=== PATIENT | male | born 1970 | race African-American/Black ===

== ENCOUNTER 2019-11-17 14:37 | Inpatient (IN) | payer OTHER, SELFPAY ==
[2019-11-17] VITALS (35 sets, daily range): BP systolic 119–151; BP diastolic 65–107; PULSE 83–168; RESP 13–25; TEMP 37–37.4; O2SAT 79–100; BMI 17.5
--- NOTE | ~2019-11-17 | XR_ITS ---
EXAMINATION: XR chest 1V portable EXAM DATE: 11/17/2019 15:17 INDICATION: Shortness of breath, fever. TECHNIQUE: Portable AP frontal chest x-ray was obtained. There is no prior study for comparison. FINDINGS: The lungs are clear. There are no pleural effusions. The cardiomediastinal silhouette is within normal limits. There is no pneumothorax suspected. Several old right mid rib fractures. IMPRESSION: No acute cardiopulmonary findings. Reviewed, dictated and finalized at location A.
--- NOTE | ~2019-11-17 | XR_ITS ---
EXAMINATION: XR knee RT 2V EXAM DATE: 11/19/2019 18:19 INDICATION: Initial encounter following injury, with pain of the right knee. TECHNIQUE: Frontal and lateral projections of the right knee. There is no prior study for compariso n. FINDINGS: There are no acute right knee fractures or dislocations identified. There is no subcutaneo us gas. The soft tissue is unremarkable. There are no radiopaque foreign bodies. No joint effusio n. IMPRESSION: 1. Right knee exam without acute osseous findings. Reviewed, dictated and finalized at location A.
--- NOTE | ~2019-11-17 | XR_ITS ---
EXAMINATION: XR small bowel follow through DATE: 11/19/2019 14:02 INDICATION: Anemia. Occult blood in stool. TECHNIQUE: Oral contrast was administered, and a time course of radiographs of the abdomen was obtain ed. Fluoroscopy of the small bowel was performed. Fluoroscopy exposure time was 0.3 minutes. The tota l number of images was 11. COMPARISON: CT abdomen and pelvis 11/17/2019 FINDINGS: The small bowel is normal in caliber. No mass or stricture. The terminal ileum is normal. Transit liane e from the stomach to proximal colon was approximately 1 hour and 30 minutes. IMPRESSION: 1. Normal small bowel series. Reviewed, dictated and finalized at location A.
--- NOTE | ~2019-11-17 | CT_ITS ---
EXAMINATION: CTA chest PE protocol DATE: 11/22/2019 15:50 INDICATION: Tachypnea. Tachycardia. TECHNIQUE: Computed tomography (CT) pulmonary angiogram of the chest was performed with 100 mL Omnipa que-350 intravenous contrast. Additional 3D reconstructions utilizing coronal maximum intensity proje ction (MIP) were performed. Automated exposure control and iterative reconstruction technique were em ployed. The dose-length product was 197.74 mGy-cm. COMPARISON: None FINDINGS: Excellent contrast opacification of the pulmonary arteries. There is mild streak artifact from dense contrast in the superior vena cava and right atrium. Significant respiratory motion artifact yielding diagnostic quality study which demonstrates no pulmonary embolism. Mild emphysema. Diffuse mild bron chial wall thickening consistent with bronchitis. Mild subpleural atelectasis/scarring in the right l ower lobe. No pneumonia, pulmonary edema or pleural effusion. Heart size is normal. No pericardial ef fusion. Thoracic aorta is normal in caliber with no dissection. No pathologically enlarged thoracic l ymphadenopathy. Bilateral gynecomastia. Multiple small calcified gallstones in the partially decompre ssed gallbladder. No evident wall thickening or pericholecystic from 3 change to suggest acute cholec ystitis. Multiple bilateral rib fractures in varying degrees of healing. IMPRESSION: 1. No pulmonary embolism. 2. Mild emphysema with bronchial wall thickening consistent with bronchitis. Reviewed, dictated and finalized at location A.
--- NOTE | ~2019-11-17 | MR_ITS ---
EXAMINATION: MR abdomen wo/w con INDICATION: Anemia and weight loss TECHNIQUE: Coronal SSFSE ARC, WATER:coronal LAVA-FLEX, Coronal 2D FIESTA FatSat, Axial SSFSE BH ARC, Axial 3D DualEcho BH, Axial SSFSE-IR, Axial DWI b=500, Axial 2D FIESTA FatSat, pre and dynamic postco ntrast Axial LAVA ARC, postcontrast Coronal In and Opposed phase LAVA FLEX COMPARISON: CT, 11/17/2019 CONTRAST: Multihance, 13 cc FINDINGS: The liver, spleen, pancreas, and adrenal glands are normal. Stones are present in the nondi stended gallbladder. The kidneys are unremarkable. Unusual kidney enhancement pattern described on th e comparison CT was likely related to phase of contrast. No pathologically enlarged abdominal lymph n odes are identified. There are no dilated loops of bowel. IMPRESSION: 1. Cholelithiasis without evidence of cholecystitis. 2. No MR correlate for anemia or weight loss. Reviewed, dictated and finalized at location A.
--- NOTE | ~2019-11-17 | CT_ITS ---
EXAMINATION: CT abdomen pelvis w con EXAM DATE: 11/17/2019 17:28 INDICATION: Left lower quadrant pain, cough, anemia. TECHNIQUE: Spiral CT of the abdomen and pelvis was performed following intravenous injection of 100 m L Omnipaque 350. Axial, coronal and sagittal images were reviewed. The dose-length product (DLP) fo r this examination was 249.71 mGy-cm. The exposure was tailored according to patient size (auto mA e xposure control), and iterative reconstruction (ASIR) was used as additional dose reduction technique . There is no prior study for comparison. FINDINGS: There is skin thickening over the sacrum, could also have induration or decubitus ulceratio n. There is fat stranding, inflammation in the presacral space as well. No sacral erosion. Some borde rline-sized inguinal lymph nodes probably reactive. No pelvic or retroperitoneal lymphadenopathy. The liver, spleen, adrenal glands and pancreas are unremarkable. There are gallstones within an othe rwise unremarkable gallbladder. No evidence of obstructive biliary disease. Portal and splenic vein s are patent. Kidneys enhance symmetrically with an unusual pattern, possible nephropathy. There is no hydronephrosis. The prostate is unremarkable. The bladder is unremarkable. There is mild scat tered arteriosclerotic disease. The appendix is normal. The stomach and small bowel are unremarkable. There is expected amount of c olonic stool. No free intraperitoneal gas. The heart is normal in size. There are no pericardial or pleural effusions. The lung bases are unremarkable. There are bilateral rib fractures of varying ages, with 2 of them in the left lower axillary line whi ch appear relatively acute, no callus formation at this point. Several right rib fractures appear sub acute to chronic. IMPRESSION: 1. Skin thickening overlying sacrum extending to the anus, possible cellulitis or ulceration. Clinic al correlation. Also some inflammation extending to the presacral space but no evidence of sacral ost eomyelitis. 2. Rib fractures of varying ages including 2 left lower ribs in mid axillary line which appear relat ively acute. 3. Unusual kidney enhancement pattern, could be nephropathy. 4. Borderline sized inguinal lymph nodes, most likely reactive. 5. Cholelithiasis. 6. No acute intra-abdominal findings. Reviewed, dictated and finalized at location A. IMPRESSION: 1. Skin thickening overlying sacrum extending to the anus, possible cellulitis or ulceration. Clinical correlation. Also some inflammation extending to the p resacral space but no evidence of sacral osteomyelitis. 2. Rib fractures of varying ages including 2 left lower ribs in mid axillary l ine which appear relatively acute. 3. Unusual kidney enhancement pattern, could be nephropathy. 4. Borderline sized inguinal lymph nodes, most likely reactive. 5. Cholelithiasis. 6. No acute intra-abdominal findings.
--- NOTE | ~2019-11-17 | MR_ITS ---
EXAMINATION: MR pelvis wo/w con INDICATION: Anemia and weight loss TECHNIQUE: Coronal SSFSE ARC, WATER:coronal LAVA-FLEX, Coronal 2D FIESTA FatSat, Axial SSFSE BH ARC, Axial 3D DualEcho BH, Axial SSFSE-IR, Axial DWI b=500, Axial 2D FIESTA FatSat, postcontrast Axial LAV A ARC, postcontrast Coronal In and Opposed phase LAVA FLEX COMPARISON: CT, 11/17/2019 CONTRAST: Multihance, 13 cc FINDINGS: There are several small perirectal abscesses best appreciated on the postcontrast Axial LAV A ARC sequence, images 69 through 90. One to the right of midline on image 75 measures 2.8 x 0.7 cm. One in the midline on image 74 measures 1.3 x 1.0 cm. One to the left of midline on image 73 measures 1.2 x 1.1 cm. There is presacral edema. Mild bilateral inguinal lymphadenopathy is noted. There are no dilated loops of bowel. The visualized osseous structures are unremarkable. Soft tissue density in the perineum and to the right of midline likely reflects changes from prior abscess drainage. IMPRESSION: 1. Multiple small perirectal abscesses as described above. 2. Mild inguinal lymphadenopathy, likely reactive. Reviewed, dictated and finalized at location A.
--- NOTE | 2019-11-17 14:53 | ECG_ITS ---
Measurements Intervals [place] Rate: 85 P: 38 MO: 148 QRS: 59 QRSD: 94 T: 56 QT: 366 QTc: 436 Interpretive Statements SINUS RHYTHM VOLTAGE CRITERIA FOR LVH BASELINE ARTIFACT- I, III, AVL, V1-V2, V5-V6 BORDERLINE ECG Electronically Signed On 11-17-2019 15:38:08 CDT by Marcelino Mccurdy D.O.
[2019-11-17 15:23] LABS: Basophils Absolute Auto 0.1 K/mm3 (0.0-0.1); Basophils Percent Auto 0.9 % (0.2-1.2); Eosinophils Absolute Auto 0.2 K/mm3 (0-0.3); Eosinophils Percent Auto 3.5 % (0-4.4); Immature Granulocyte Absolute 0.03 K/mm3 (0.00-0.031); Immature Granulocyte Percent A 0.5 % (0-0.5); Lymphocytes Absolute Auto 1.53 K/mm3 (0.9-3.2); Lymphocytes Percent Auto 23.5 % (18.3-44.2); Mean Corpuscular HGB Conc 27.5 g/dl (32-36); Mean Corpuscular Hemoglobin 23.1 pg (26-34); Mean Corpuscular Volume 84.3 fl (80-100); Mean Platelet Volume 8.8 fl (7.4-10.4); Monocytes Absolute Auto 0.6 K/mm3 (0.1-0.6); Monocytes Percent Auto 9.8 % (2.6-8.5); Neutrophils Percent Auto 61.8 % (45.5-73.1); Platelet Count Result 300 k/mm3 (150-375); Red Blood Count 2.42 M/mm3 (4.6-6.20); Red Cell Distribution Width 22.1 % (11.5-14.5); White Blood Count 6.5 K/mm3 (4.5-10.0)
--- NOTE | 2019-11-17 15:39 | PC.NURSE ---
Pt aware we need a urine sample and awaiting results. Pt has call light in reach
[2019-11-17 15:40] LABS: Alanine Aminotransferase 12 U/L (4-50); Albumin Level 3.8 g/dL (3.5-5.1); Alkaline Phosphatase 121 U/L (38-126); Aspartate Amino Transferase 33 U/L (17-59); Bilirubin,Total < 0.1 mg/dL (0.2-1.3); Blood Urea Nitrogen 4 mg/dL (9-20); Carbon Dioxide 17 mmol/L (22-30); Chloride 111 mmol/L (98-107); Estimated CRCL calculation 87 ml/min; Estimated Glomerular Filt Rate > 60; Glucose 96 mg/dL (75-110); Potassium 3.2 mmol/L (3.4-5.0); Sodium 139 mmol/L (137-145)
[2019-11-17 15:41] LABS: Hematocrit 20.4 % (42.0-52.0); Hemoglobin 5.6 g/dL (14.0-18.0)
[2019-11-17 15:43] LABS: Hyperchromasia 3+ (NORMAL); Hypochromasia 2+ (NORMAL); Platelet Estimate Adequate (Adequate)
--- NOTE | 2019-11-17 16:23 | ED.WEAKNESS ---
HPI - Weakness General Chief complaint: Weakness Stated complaint: Weakness, fever Time Seen by Provider: 11/17/19 15:42 History of Present Illness HPI Narrative: Patient presents with generalized weakness. He denies vomiting blood, rectal bleeding, sickle cell, or any known disease. He has a slight cough but denies other illness. No fever chills or sweats. He has some left flank pain, over the last couple days, no diarrhea or constipation. He is very thin but denies HIV. Denies risk factors for HIV. He did have a scope many years ago, and said that he was not told he had any disease. Complaint: generalized weakness Onset (ago): day(s) Duration: constant Location: generalized Related Data Allergies Allergy/AdvReac Type Severity Reaction Status Date / Time metronidazole Allergy Mild BLISTERS Verified 11/17/19 14:49 atenolol Allergy Unknown angioedema Verified 11/17/19 14:49 chlorthalidone [Tenoretic] Allergy Unknown angioedema Verified 11/17/19 14:49 lisinopril Allergy Unknown Swelling Verified 11/17/19 14:49 of Lip/Tongue/Throat Sulfa (Sulfonamide Allergy Unknown Skin Verified 11/17/19 14:49 Antibiotics) Reaction NKFA Allergy Mild Other Uncoded 11/17/19 14:49 Review of Systems Review of Systems: Narrative: CONSTITUTIONAL: Denies fever, chills, or sweats. EYES: Denies visual changes, redness, or discharge. ENT: Denies rhinorrhea, congestion, sore throat, or otalgia. CARDIOVASCULAR: Denies chest pain, palpitations, or edema. RESPIRATORY: Denies cough or dyspnea. GASTROINTESTINAL: Denies abdominal pain, nausea, vomiting, or diarrhea. GENITOURINARY: Denies dysuria or hematuria. SKIN: Denies rash or itching. MUSCULOSKELETAL: Denies back pain, joint pain, or myalgia. NEUROLOGIC: Denies headache, numbness, or weakness. PSYCHIATRIC: Denies anxiety or depression. All systems reviewed & are unremarkable except as noted in HPI and below PMFSH Surgical History Surgical History (Updated 11/17/19 @ 16:25 by Gem Chao MD) History of ankle surgery Social History Social History (Updated 11/17/19 @ 16:25 by Gem Chao MD) Smoking status: Never smoker Alcohol intake: current Substance use: never Gender identity (if verbalized by the patient): Male Exam Narrative: Exam Narrative: GENERAL: Tall thin cachectic and pale. HEAD: Normocephalic, atraumatic. EYES: PERRLA and EOMI. ENT: Nares clear, no rhinorrhea or epistaxis. Mucous membranes moist. NECK: Supple. CHEST: Clear to auscultation. No respiratory distress. HEART: Regular rate and rhythm. No murmur heard. Normal peripheral pulses. ABDOMEN: Soft, nontender, nondistended, normal active bowel sounds. EXTREMITIES: Normal range of motion. No edema. SKIN: Warm, dry, his skin is very dry and has hypo-and hyperpigmentation scattered throughout. NEURO: No focal deficits. Alert and oriented x3. PSYCH: Flat affect, and few words. Course Reevaluation(s) Reevaluation #1: Checked in with the patient to tell him the results of his CAT scan. He had said earlier that he had had surgeries on his buttock but did not know what to call it. Radiologist reports swelling in the tissues around the anus and the sacral area. The patient said that there is no drainage from this area. I did the rectal exam and it was guaiac positive, but the tissues surrounding the anus on the buttock are thickened and scarred and very unusual. His blood has not yet come down, but we will admit for the transfusion. Date: 11/17/19 Time: 18:29 Consultations Consultation #1: Called the hospitalist for admission. She will he accepts for Dr. Jones as long as we can get a GI kristopher on the case. We will call Dr. Garzon even though he is not director operations broadcast to see if he will take it. Date: 11/17/19 Time: 18:36 Consultation #2: Call Dr. Ruiz, and he accepts the consult. He requested if we can figure out where the patient's previous scope was that history would be important. Date: 11/17/19 Time: 18
[2019-11-17 17:39] LABS: Lactic Acid 1.8 mmol/L (0.7-2.1)
--- NOTE | 2019-11-17 17:50 | PC.NURSE ---
Pt stood up to urinate and his HR went to 168. MD Chao aware. Pt HR now 99 after laying down
[2019-11-17 18:11] LABS: HIV 1/2 Ab P24 Ag Result Negative (Negative)
[2019-11-17 18:26] LABS: Add Urine Microscopic? YES; Appearance Urine Clear (Clear); Bilirubin Urine Negative (Negative); Blood Urine Negative (Negative); Color Urine Straw (Yellow); Glucose Urine UA Negative (Negative); Ketones Urine Negative (Negative); Leukocyte Esterase Ur Negative LEU/UL (Negative); Nitrate Urine Negative (Negative); Protein Urine 1+ mg/dL (Negative); RBC Urine 0-2 /hpf (0-2); Specific Grav Ur 1.025 (1.001-1.035); Urobilinogen Urine Negative mg/dL (<2.0); WBC Urine 0-3 /hpf
[2019-11-17] MEDS: SODIUM CHLORIDE 0.9% IV 250 ML 30 ML IV CONT (20:31)
[2019-11-17] MEDS: TUBING, BLOOD SET 1 EACH XX (20:32)
--- NOTE | 2019-11-17 22:05 | ADMGEN ---
This patient, Rafy Davis, was admitted to [facility] Surg Room 328-01. Patient/family oriented to hospital policies and general routines including ID bracelet, bed and alarms, visiting hours, pain management, procedures, bathroom and other care routines, personal items, smoking policy, room service/diet, and visiting hours. Valuables list has been completed. Information on how to activate the Rapid Response Team has been discussed. Patient/Family are encouraged to report perceived risks to care and to ask questions if they do not understand what they are told or what they should do.
[2019-11-18] VITALS (17 sets, daily range): BP systolic 106–148; BP diastolic 66–93; PULSE 67–141; RESP 16–20; TEMP 36.3–37.8; O2SAT 92–100; BMI 17.5
--- NOTE | 2019-11-18 02:23 | PM.IMHP ---
H&P: HPI History of Present Illness Chief complaint: Anemia, GI Bleed Narrative: This is a 49 year old male who is known to previously have HTN but currently is not taking any medications and presented to the hospital with complaints of ongoing generalized weakness, shortness of breath, nonproductive coughing, dizziness, and left sided costal discomfort. The patient reports that he fell about 3 weeks ago and landed on his left side when he was severely dizzy although he denies passing out at that time. He has been experiencing night sweats and has had significant sudden recent weight loss. He isn't sure exactly how much weight he has lost recently. The patient denies any fever or chills. He also denied having HIV but was tested for HIV in the ER tonight. Routine labs were obtained which demonstrated an H/H of 5.6/20.4. Rectal exam was performed in the ER which was guiaic postive. The patient denies any bright red rectal beeding or dark black stools. He also denies any recent bloody emesis. He does not have any previous history of GI Bleeds, PUD, NSAID use or use of anticoagulants. He last had a colonoscopy almost 10 years ago which he doesn't remember the results of. ER provider has consulted GI specialist, Dr. Ruiz. No other complaints. Review of Systems Review of Systems: All systems reviewed & are unremarkable except as noted in HPI and below PMFSH Past Medical History Medical History (Updated 11/18/19 @ 02:46 by Ronny Hairston MD) HTN (hypertension) with goal to be determined Surgical History Surgical History (Updated 11/17/19 @ 16:25 by Gem Chao MD) History of ankle surgery Social History Social History (Updated 11/17/19 @ 16:25 by Gem Chao MD) Smoking status: Never smoker Alcohol intake: current Drinks per week: 24 Substance use: never Gender identity (if verbalized by the patient): Male Spiritual care concerns: No Comments Family medical history is reviewed and unremarkable. Meds Home Medications and Allergies Home Medications Medication Instructions Recorded Confirmed Type No Home Medications 11/17/19 11/17/19 History Allergies Allergy/AdvReac Type Severity Reaction Status Date / Time metronidazole Allergy Mild BLISTERS Verified 11/17/19 22:23 atenolol Allergy Unknown angioedema Verified 11/17/19 22:23 chlorthalidone [Tenoretic] Allergy Unknown angioedema Verified 11/17/19 22:23 lisinopril Allergy Unknown Swelling Verified 11/17/19 22:23 of Lip/Tongue/Throat Sulfa (Sulfonamide Allergy Unknown Skin Verified 11/17/19 22:23 Antibiotics) Reaction Vital Signs Vital Signs - 24 hr 11/17/19 14:43 11/17/19 14:57 11/17/19 15:00 Temperature 37.1 C Pulse Rate 92 97 Respiratory Rate 15 14 Blood Pressure 151/105 H 145/107 H Pulse Oximetry 100 100 100 11/17/19 15:01 11/17/19 15:15 11/17/19 15:16 Temperature Pulse Rate 102 H 84 84 Respiratory Rate 17 17 16 Blood Pressure 147/93 H Pulse Oximetry 100 100 100 11/17/19 15:30 11/17/19 15:31 11/17/19 15:45 Temperature Pulse Rate 87 83 86 Respiratory Rate 16 16 13 Blood Pressure 136/91 H 140/83 Pulse Oximetry 100 100 100 11/17/19 15:46 11/17/19 16:00 11/17/19 16:01 Temperature Pulse Rate 86 94 100 Respiratory Rate 17 22 H 18 Blood Pressure 134/88 Pulse Oximetry 100 11/17/19 16:30 11/17/19 16:55 11/17/19 16:56 Temperature Pulse Rate Respiratory Rate Blood Pressure 134/79 139/92 H Pulse Oximetry 97 11/17/19 17:00 11/17/19 17:03 11/17/19 17:15 Temperature Pulse Rate 95 83 Respiratory Rate 17 14 Blood Pressure 151/94 H Pulse Oximetry 100 100 100 11/17/19 17:30 11/17/19 17:31 11/17/19 17:45 Temperature Pulse Rate 109 H 106 H 168 H Respiratory Rate 20 18 19 Blood Pressure 147/90 H 140/66 Pulse Oximetry 11/17/19 17:46 11/17/19 18:00 11/17/19 18:01 Temperature Pulse Rate 136 H 106 H 92 Respiratory Rate
[2019-11-18] MEDS: KCL 20 MEQ/SW 100 ML 100 ML 50 MEQ IVPB (05:24)
--- NOTE | 2019-11-18 09:26 | WPDGICN ---
Assessment and Plan Assessment and plan (1) Stool guaiac positive: Code(s): R19.5 - Other fecal abnormalities Status: Acute Assessment and Plan: Hemoccult-positive stools in the face of rather profound anemia suspicious for GI blood loss. Plan is for colonoscopy an EGD after COVID status is made known. Occult blood in stool likely related to perianal disease. (2) Anemia: Qualifiers: Anemia type: unspecified type Qualified Code(s): D64.9 - Anemia, unspecified Code(s): D64.9 - Anemia, unspecified Status: Acute Assessment and Plan: Profound anemia identified. Some suspicion this may be chronic. Iron folate B12 levels will be obtained. (3) Danica-rectal abscess: Code(s): K61.1 - Rectal abscess Status: Acute Assessment and Plan: Patient has a history of perianal abscess treated by surgery in 2003. And again approximately 2011. At 1 point he was seen at [facility]. Suspicion for hidradenitis suppurative was considered. But no definitive diagnosis identified. Perianal Crohn's disease also a likely possibility. Plan is to check his IBD serology. Start patient on antibiotics. Because he is allergic to Flagyl ciprofloxacin will be started. Skin biopsy may be required by a surgery or Dermatology service. If colonoscopy is negative. (4) Cholelithiasis: Code(s): K80.20 - Calculus of gallbladder without cholecystitis without obstruction Status: Acute Assessment and Plan: Gallstones identified by CT scan likely asymptomatic. GI Consult Note Consult date/time: 11/18/19 09:26 HPI: Rafy Davis is a 49 year old male seen in evaluation at the request of the emergency room physician. Patient reports a 2-3 week history of progressive weakness. He had a fall several weeks ago. He became progressively short of breath with exertion. For these reasons he went to the emergency room today and was found to be profoundly anemic. Patient denies any obvious blood in his stools. He denies any blood in his urine. He denies any bruises. He has had no recent blood loss. In the emergency room stool was found to be Hemoccult positive. Patient's past medical history is significant for perirectal abscesses requiring several surgeries initially in 2003 and then again in 2011. Definitive diagnosis was not given to the patient. Reports from 2004 suggest concern over hidradenitis suppurative. Patient denies any abdominal or rectal pain. His family history is noncontributory. Patient apparently has been told he has hypertension with no medications. Social history is significant that he does drink alcoholic beverages routinely. Review of Systems Review of Systems: All systems reviewed & are unremarkable except as noted in HPI and below PMFSH Past Medical History Medical History HTN (hypertension) with goal to be determined Surgical History Surgical History History of ankle surgery Social History Social History Smoking status: Never smoker Alcohol intake: current Drinks per week: 24 Substance use: never Gender identity (if verbalized by the patient): Male Spiritual care concerns: No Meds Home Medications and Allergies Home Medications Medication Instructions Recorded Confirmed Type No Home Medications 11/17/19 11/17/19 History Allergies Allergy/AdvReac Type Severity Reaction Status Date / Time metronidazole Allergy Mild BLISTERS Verified 11/17/19 22:23 atenolol Allergy Unknown angioedema Verified 11/17/19 22:23 chlorthalidone [Tenoretic] Allergy Unknown angioedema Verified 11/17/19 22:23 lisinopril Allergy Unknown Swelling Verified 11/17/19 22:23 of Lip/Tongue/Throat Sulfa (Sulfonamide Allergy Unknown Skin Verified 11/17/19 22:23 Antibiotics) Reaction Vital
[2019-11-18 09:45] LABS: Basophils Absolute Auto 0.1 K/mm3 (0.0-0.1); Basophils Percent Auto 0.7 % (0.2-1.2); Eosinophils Absolute Auto 0.2 K/mm3 (0-0.3); Eosinophils Percent Auto 1.6 % (0-4.4); Hematocrit 28.1 % (42.0-52.0); Hemoglobin 8.4 g/dL (14.0-18.0); Immature Granulocyte Absolute 0.04 K/mm3 (0.00-0.031); Immature Granulocyte Percent A 0.4 % (0-0.5); Lymphocytes Absolute Auto 1.17 K/mm3 (0.9-3.2); Mean Corpuscular HGB Conc 29.9 g/dl (32-36); Mean Corpuscular Hemoglobin 25.9 pg (26-34); Mean Corpuscular Volume 86.7 fl (80-100); Mean Platelet Volume 8.8 fl (7.4-10.4); Monocytes Absolute Auto 0.8 K/mm3 (0.1-0.6); Neutrophils Absolute Auto 7.5 K/mm3 (1.3-6.7); Neutrophils Percent Auto 77.3 % (45.5-73.1); Platelet Count Result 263 k/mm3 (150-375); Red Blood Count 3.24 M/mm3 (4.6-6.20); Red Cell Distribution Width 20.9 % (11.5-14.5); White Blood Count 9.7 K/mm3 (4.5-10.0)
--- NOTE | 2019-11-18 09:54 | P.PNIM_ITS ---
Progress Note: A&P Assessment and Plan (1) Symptomatic anemia: Code(s): D64.9 - Anemia, unspecified Status: Acute Assessment and Plan: At presentation, HGB 5.6 and HCT 20.4. Patient received a total of 2 units pRBC on 11/16. Today, HGB 8.4 and HCT 28.1. IFOB positive. * Continue to monitor H&H closely and transfuse as needed * Continue fall precautions * GI has been consulted and recommendations are greatly appreciated. * Await results of iron panel, folate, B12 * Continue IV Protonix (2) Danica-rectal abscess: Code(s): K61.1 - Rectal abscess Status: Acute Assessment and Plan: Patient has history of perianal disease with history of surgical management of perianal abscess in [address] abdomen/pelvis reveals sacral skin thickening extending to anus. * GI has been consulted and recommendations are appreciated. * Patient will undergo colonoscopy and EGD pending results of COVID test * Continue IV Levaquin per GI. * Serology pending as part of workup for IBD. (3) Suspected 2019 novel coronavirus infection: Code(s): Z20.828 - Contact with and (suspected) exposure to other viral communicable diseases Status: Acute Assessment and Plan: The patient has been swabbed in the ER and results are pending. CXR reveals no acute cardiopulmonary findings. Patient endorses occasional cough. Febrile at 100.1 early this morning but is now afebrile. Patient is 100% on room air * Continue droplet isolation. * Continue supportive care including antiemetics and antipyretics * Trend acute phase reactants. * Begin albuterol MDI prn * Continue to monitor CXR for progression * Maintain goal O2 saturation of >92% (4) Weight loss: Code(s): R63.4 - Abnormal weight loss Status: Chronic Assessment and Plan: Patient endorses recent unintentional weight loss and poor appetite. The symptoms coupled with significant anemia and complaints of night sweats raise concern for malignancy. HIV is negative. * Hematology/oncology has been consulted and recommendations are greatly appreciated * Patient will undergo colonoscopy and EGD pending result of COVID test * Will obtain TSH (5) Left-sided chest wall pain: Code(s): R07.89 - Other chest pain Status: Acute Assessment and Plan: Secondary to recent fall and rib fractures. * Continue acetaminophen prn pain * Continue additional symptomatic treatment as needed. (6) Tachycardia: Code(s): R00.0 - Tachycardia, unspecified Status: Acute Assessment and Plan: Review of telemetry shows episode of tachycardia up to 143. According to nursing staff, this episode correlated to patient ambulating from bed to restroom. Additional review reveals normal sinus rhythm. * Will continue to monitor telemetry closely. * Will obtain TSH * Tachycardia may additionally be related to profound anemia. Will continue to monitor H&H closely (7) HTN (hypertension) with goal to be determined: Code(s): I10 - Essential (primary) hypertension Status: Acute Assessment and Plan: Patient has a known history of HTN but was not on any antihypertensives. BP evaluated today and stable at 125/76. Blood pressure appears to be well controlled. * Continue to monitor Subjective Date/time seen: 11/18/19 09:54 Interval history: Date of service: 11/18/2019 Mr. Davis reports he is feeling tired today. He had just completed 1 unit RBC transfusion and repo
--- NOTE | 2019-11-18 09:54 | PM.IMPN ---
Progress Note: A&P Assessment and Plan (1) Symptomatic anemia: Code(s): D64.9 - Anemia, unspecified Status: Acute Assessment and Plan: At presentation, HGB 5.6 and HCT 20.4. Patient received a total of 2 units pRBC on 11/16. Today, HGB 8.4 and HCT 28.1. IFOB positive. Continue to monitor H&H closely and transfuse as needed Continue fall precautions GI has been consulted and recommendations are greatly appreciated. Await results of iron panel, folate, B12 Continue IV Protonix (2) Danica-rectal abscess: Code(s): K61.1 - Rectal abscess Status: Acute Assessment and Plan: Patient has history of perianal disease with history of surgical management of perianal abscess in [address] abdomen/pelvis reveals sacral skin thickening extending to anus. GI has been consulted and recommendations are appreciated. Patient will undergo colonoscopy and EGD pending results of COVID test Continue IV Levaquin per GI. Serology pending as part of workup for IBD. (3) Suspected 2019 novel coronavirus infection: Code(s): Z20.828 - Contact with and (suspected) exposure to other viral communicable diseases Status: Acute Assessment and Plan: The patient has been swabbed in the ER and results are pending. CXR reveals no acute cardiopulmonary findings. Patient endorses occasional cough. Febrile at 100.1 early this morning but is now afebrile. Patient is 100% on room air Continue droplet isolation. Continue supportive care including antiemetics and antipyretics Trend acute phase reactants. Begin albuterol MDI prn Continue to monitor CXR for progression Maintain goal O2 saturation of >92% (4) Weight loss: Code(s): R63.4 - Abnormal weight loss Status: Chronic Assessment and Plan: Patient endorses recent unintentional weight loss and poor appetite. The symptoms coupled with significant anemia and complaints of night sweats raise concern for malignancy. HIV is negative. Hematology/oncology has been consulted and recommendations are greatly appreciated Patient will undergo colonoscopy and EGD pending result of COVID test Will obtain TSH (5) Left-sided chest wall pain: Code(s): R07.89 - Other chest pain Status: Acute Assessment and Plan: Secondary to recent fall and rib fractures. Continue acetaminophen prn pain Continue additional symptomatic treatment as needed. (6) Tachycardia: Code(s): R00.0 - Tachycardia, unspecified Status: Acute Assessment and Plan: Review of telemetry shows episode of tachycardia up to 143. According to nursing staff, this episode correlated to patient ambulating from bed to restroom. Additional review reveals normal sinus rhythm. Will continue to monitor telemetry closely. Will obtain TSH Tachycardia may additionally be related to profound anemia. Will continue to monitor H&H closely (7) HTN (hypertension) with goal to be determined: Code(s): I10 - Essential (primary) hypertension Status: Acute Assessment and Plan: Patient has a known history of HTN but was not on any antihypertensives. BP evaluated today and stable at 125/76. Blood pressure appears to be well controlled. Continue to monitor Subjective Date/time seen: 11/18/19 09:54 Interval history: Date of service: 11/18/2019 Mr. Davis reports he is feeling tired today. He had just completed 1 unit RBC transfusion and reports he feels about the same as he did prior to receiving blood. He denies dizziness or lightheadedness. He denies palpitations. He denies bleeding from any source or bruising. He endorses pain around his left ribcage related to a fall he recently had. He is coughing occasionally productive of white sputum. He denies chest pain or shortness of breath. He denies abdominal pain, nausea, or vomiting. His last bowel movement was 2 days ago and he denied hem
[2019-11-18 10:49] LABS: Blood Urea Nitrogen 5 mg/dL (9-20); Calcium 8.9 mg/dL (8.4-10.2); Carbon Dioxide 15 mmol/L (22-30); Chloride 108 mmol/L (98-107); Estimated CRCL calculation 104 ml/min; Estimated Glomerular Filt Rate > 60; Glucose 131 mg/dL (75-110); Magnesium 1.4 mg/dL (1.6-2.3); Sodium 132 mmol/L (137-145)
[2019-11-18] MEDS: levoFLOXacin 500 MG/D5W 100 ML 500 MG/100 ML BAG 100 MG IVPB (11:15)
[2019-11-18 13:23] LABS: Iron 246 ug/dL (49-181)
[2019-11-18 13:32] LABS: Percent Iron Saturation 63 % (20-50)
[2019-11-18 14:34] LABS: Folic Acid 5.9 ng/mL (2.76->20)
[2019-11-18 14:46] LABS: SARS-CoV-2 RNA PCR Negative
--- NOTE | 2019-11-18 14:52 | PC.NURSE ---
Notified Margaret MALONE that patient is COVID negative. No new orders were obtained.
[2019-11-18 15:41] LABS: Hematocrit 25.4 % (42.0-52.0); Hemoglobin 7.8 g/dL (14.0-18.0)
[2019-11-18] MEDS: PEG (High)/E-LYTE SOLN 4,000 ML BTL 4000 ML PO (17:14)
[2019-11-18 17:31] LABS: Immature Reticulocyte Fraction 37.5 % (3.0-15.9); Reticulocyte Hemoglobin Conten 23.5 pg (28.2-35.7); Reticulocyte Percent 1.02 % (0.7-4.3); Reticulocytes Absolute 0.03 B/L (32.2-175.7)
[2019-11-18 17:42] LABS: Lactate Dehydrogenase 284 U/L (313-618)
[2019-11-18] MEDS: MAGNESIUM OXIDE 200 MG TABLET PO (21:08)
[2019-11-18] MEDS: ACETAMINOPHEN 325 MG TABLET 650 MG PO (21:15)
[2019-11-18 21:28] LABS: Hematocrit 28.2 % (42.0-52.0); Hemoglobin 8.6 g/dL (14.0-18.0)
--- NOTE | 2019-11-18 23:25 | CONS_ITS ---
DATE OF CONSULTATION: 11/18/2019 REASON FOR CONSULTATION: Profound anemia. HISTORY OF PRESENTING ILLNESS: This is a 49-year-old male, who has been in good health except history of hypertension, came into the hospital with generalized weakness and generalized pain involving the shoulder and the knees. He has been complaining of tiredness and fatigue. He was also complaining of cough with shortness of breath. According to the patient, he fell 3 weeks ago and landed on the left side after being dizzy. He denies any melena and hematochezia recently, but had episodes of dark stool a few months ago. He denies any other bleeding complaints. He had a colonoscopy done previously, but not sure when. He also claimed that he lost weight, but not sure how much. On admission, labs were done that showed hemoglobin of 5.6. He received 2 units of packed red blood cells. REVIEW OF SYSTEMS: A 12-point review of systems was reviewed and as per HPI, otherwise negative. PAST MEDICAL HISTORY: Hypertension. PAST SURGICAL HISTORY: Ankle surgery. HOME MEDICATIONS: Reviewed. ALLERGIES: REVIEWED. SOCIAL HISTORY: The patient smokes every day. He also drinks almost every day. FAMILY HISTORY: The patient denies any history of sickle cell anemia in the family. PHYSICAL EXAMINATION: GENERAL: This patient is a well-developed, well-nourished male, in no apparent distress. Alert and oriented. VITAL SIGNS: As per nursing note. HEENT: Normocephalic, atraumatic. Clear oropharynx. LUNGS: Clear to auscultation bilaterally. CARDIOVASCULAR: Regular rate and rhythm. No murmurs. ABDOMEN: Soft, nontender, nondistended. Bowel sounds are positive in all 4 quadrants. No hepatosplenomegaly. EXTREMITIES: No edema. NEUROLOGIC: Grossly intact. LABORATORY DATA: WBC 9.7, hemoglobin 7.8, MCV 86.7, platelet 263,000, hemoglobin was 5.6 prior to the blood transfusion. Neutrophils 77%, lymphocytes 12%, 2+ hypochromasia and 3+ hyperchromasia. Creatinine 0.7, iron 246, iron saturation 63%, ferritin 11.5, total bilirubin 0.1. Vitamin B12 of 477, calcium 9.0. CT abdomen and pelvis was performed that showed skin thickening over the sacrum extending to the anus, likely cellulitis or ulceration. There are rib fractures of varying degree in the left lower ribs. Unusual enhancement of the kidney could be nephropathy, border line size inguinal lymphadenopathy, likely reactive. No acute intraabdominal process. Normocytic anemia. ASSESSMENT AND PLAN: This is a 49-year-old male, who denies any history of anemia previously. He has been in good health except history of hypertension. He had episode of melena a couple of months ago. He had a colonoscopy done previously that was unremarkable. The patient is a poor historian and does not remember much about his previous history. Now labs reviewed. The patient's iron level came back elevated, likely falsely elevated, after most likely blood transfusion affects. Ferritin is low consistent with iron deficiency. I will also order the workup for hemolytic anemia and will order LDH, reticulocyte count, haptoglobin, and Madhavi test. I will also check serum protein electrophoresis with immunofixation given the history of rib fracture and diffuse musculoskeletal pain. 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 GI consultation noted and plan for EGD and colonoscopy noted when his COVID-19 test comes back negative. We will also repeat iron studies and we will start him on IV iron infusion. I have answered all the questions to the patient's satisfaction. JERMAINE BINGHAM M.D. ANIMAL CARE SUPERVISOR
[2019-11-19] VITALS (14 sets, daily range): BP systolic 114–136; BP diastolic 72–95; PULSE 64–120; RESP 16–24; TEMP 36.2–37.2; O2SAT 100
[2019-11-19 06:08] LABS: Basophils Absolute Auto 0.1 K/mm3 (0.0-0.1); Basophils Percent Auto 0.6 % (0.2-1.2); Eosinophils Absolute Auto 0.2 K/mm3 (0-0.3); Eosinophils Percent Auto 2.3 % (0-4.4); Hematocrit 25.6 % (42.0-52.0); Hemoglobin 7.8 g/dL (14.0-18.0); Immature Granulocyte Absolute 0.04 K/mm3 (0.00-0.031); Immature Granulocyte Percent A 0.4 % (0-0.5); Lymphocytes Percent Auto 9.4 % (18.3-44.2); Mean Corpuscular HGB Conc 30.5 g/dl (32-36); Mean Corpuscular Hemoglobin 25.7 pg (26-34); Mean Corpuscular Volume 84.5 fl (80-100); Mean Platelet Volume 9.5 fl (7.4-10.4); Monocytes Absolute Auto 0.9 K/mm3 (0.1-0.6); Monocytes Percent Auto 9.1 % (2.6-8.5); Neutrophils Absolute Auto 7.5 K/mm3 (1.3-6.7); Neutrophils Percent Auto 78.2 % (45.5-73.1); Platelet Count Result 268 k/mm3 (150-375); Red Blood Count 3.03 M/mm3 (4.6-6.20); Red Cell Distribution Width 20.4 % (11.5-14.5); White Blood Count 9.6 K/mm3 (4.5-10.0)
[2019-11-19 06:20] LABS: Alanine Aminotransferase 9 U/L (4-50); Albumin Level 3.4 g/dL (3.5-5.1); Alkaline Phosphatase 111 U/L (38-126); Aspartate Amino Transferase 19 U/L (17-59); Bilirubin,Total 0.4 mg/dL (0.2-1.3); Blood Urea Nitrogen 2 mg/dL (9-20); Calcium 9.2 mg/dL (8.4-10.2); Carbon Dioxide 21 mmol/L (22-30); Chloride 105 mmol/L (98-107); Estimated CRCL calculation 120 ml/min; Estimated Glomerular Filt Rate > 60; Glucose 103 mg/dL (75-110); Magnesium 1.3 mg/dL (1.6-2.3); Potassium 3.4 mmol/L (3.4-5.0); Sodium 132 mmol/L (137-145)
[2019-11-19] MEDS: MAGNESIUM OXIDE 200 MG TABLET PO ×2 (08:28→20:25)
[2019-11-19] MEDS: LACTATED RINGERS 1,000 ML 150 ML IV CONT (09:26)
--- NOTE | 2019-11-19 09:33 | WPDANESEPPF ---
Anes - Initial Pre Proc Eval Procedure: Operation Date: 11/19/19 10:30 Proposed Procedures p Esophagogastroduodenoscopy & Colonoscopy - Semaj Ruiz MD Date/Time: 11/19/19 09:33 Surgeon: Margaret Jimenez PA-C Pre Op Diagnosis: Anemia, GI Bleed Patient Data Age: 49 Gender: M Height: 6 ft 5 in Weight: 67 kg Last Vital Signs Temp 37.2 C 11/19/19 09:27 Pulse 101 H 11/19/19 09:27 Resp 17 11/19/19 09:27 BP 136/90 11/19/19 09:27 Pulse Ox 100 11/19/19 09:27 Allergies Allergy/AdvReac Type Severity Reaction Status Date / Time metronidazole Allergy Mild BLISTERS Verified 11/17/19 22:23 atenolol Allergy Unknown angioedema Verified 11/17/19 22:23 chlorthalidone [Tenoretic] Allergy Unknown angioedema Verified 11/17/19 22:23 lisinopril Allergy Unknown Swelling Verified 11/17/19 22:23 of Lip/Tongue/Throat Sulfa (Sulfonamide Allergy Unknown Skin Verified 11/17/19 22:23 Antibiotics) Reaction Home Medications Medication Instructions Recorded Confirmed Type No Home Medications 11/17/19 11/17/19 History Laboratory Tests 11/17/19 11/18/19 11/18/19 17:04 09:30 09:30 WBC RBC Hgb Hct MCV MCH MCHC RDW Plt Count MPV Immature Gran % (Auto) Neut % (Auto) Lymph % (Auto) Riley % (Auto) Eos % (Auto) Baso % (Auto) Lymph # (Auto) Riley # (Auto) Eos # (Auto) Baso # (Auto) Abs Immat Gran (auto) Absolute Neuts (auto) Absolute Nucleated RBC Nucleated RBC % Absolute Retic Percent Retic Immature Retic Fraction Retic Hgb Content Haptoglobin Sodium Potassium Chloride Carbon Dioxide BUN Creatinine Estim Creat Clear Calc Estimated GFR Glucose Calcium Magnesium Iron 246 ug/dL H ug/dL (49-181) TIBC 389 ug/dL ug/dL (265-497) % Saturation 63 % H % (20-50) Ferritin 11.50 ng/mL L ng/mL (17.9-464) Total Bilirubin AST ALT Alkaline Phosphatase Lactate Dehydrogenase Total Protein Albumin Ucfep-8-Zsimsplld Xfgcz-3-Ovytfhvbq Xjik-3-Vgzxhqch Bptr-5-Cvgpdxux Gamma Globulins Abnorm Protein Band 1 Abnorm Protein Band 3 PEP Interpretation Vitamin B12 477.0 pg/mL pg/mL (239-931) Folate 5.9 ng/mL ng/mL (2.76->20) TSH (Reflex) Serum Immunofixation ANCA Screen Proteinase 3 (PR3) Ab Myeloperoxidase Ab S.cerevisiae IgG Ab S.cerevisiae IgA Ab SARS-CoV-2 RNA (RT-PCR) Negative AYESHA, Poly Interpret AYESHA, Complement Interp 11/18/19 11/18/19 11/18/19 09:35 09:35 09:35 WBC 9.7 K/mm3 K/mm3 (4.5-10.0) RBC 3.24 M/mm3 L M/mm3 (4.6-6.20) Hgb 8.4 g/dL L g/dL (14.0-18.0) Hct 28.1 % L % (42.0-52.0) MCV 86.7 fl fl (80-100) MCH 25.9 pg L D pg (26-34) MCHC 29.9 g/dl L g/dl (32-36) RDW 20.9 % H % (11.5-14.5) Plt Count 263 k/mm3 k/mm3 (150-375) MPV 8.8 fl fl (7.4-10.4) Immature Gran % (Auto) 0.4 % % (0-0.5) Neut % (Auto) 77.3 % H % (45.5-73.1) Lymph % (Auto) 12.0 % L % (18.3-44.2) Riley % (Auto) 8.0 % % (2.6-8.5) Eos % (Auto) 1.6 % % (0-4.4) Baso % (Auto) 0.7 % % (0.2-1.2) Lymph # (Auto)
[2019-11-19] MEDS: BENZOCAINE (*SP) 60 ML SPRAY CAN (HURRICAINE) 1 SPRAY MUCOUS MEM (10:19)
--- NOTE | 2019-11-19 10:41 | PC.NURSE ---
Patient to cardiac lab for stress test at 830.
[2019-11-19 12:51] LABS: Iron 26 ug/dL (49-181)
[2019-11-19 13:00] LABS: Percent Iron Saturation 7 % (20-50)
--- NOTE | 2019-11-19 14:39 | P.PNIM_ITS ---
Progress Note: A&P Assessment and Plan (1) Symptomatic anemia: Code(s): D64.9 - Anemia, unspecified Status: Acute Assessment and Plan: At presentation, HGB 5.6 and HCT 20.4. Patient received a total of 2 units pRBC on 11/16. Today, Hgb is 7.8 and Hct 25.6. IFOB positive. * Continue to monitor H&H q6H and transfuse as needed * Continue fall precautions * GI and hematology have been consulted and recommendations are greatly appreciated. * Iron level and % saturation are low. Will begin IV iron infusion. * Continue IV Protonix * Underwent colonoscopy and EGD today. EGD was unremarkable. Colonoscopy revealed uncomplicated internal hemorrhoids with stigmata of bleeding. Small- bowel follow-through revealed normal caliber small bowel without mass or stricture and normal transit time. * Protein electrophoresis is pending (2) Danica-rectal abscess: Code(s): K61.1 - Rectal abscess Status: Acute Assessment and Plan: Patient has history of perianal disease with history of surgical management of perianal abscess in [address] abdomen/pelvis reveals sacral skin thickening extending to anus. On exam, patient has thickened firm skin overlying sacrum to rectum. * GI has been consulted and recommendations are appreciated. * Patient underwent colonoscopy today revealing internal hemorrhoids with stigmata of bleeding. * Patient may benefit from dermatology evaluation of perianal thickening which can be pursued as an outpatient. * Discontinue IV Levaquin per GI. * Serology pending as part of workup for IBD. (3) Suspected 2019 novel coronavirus infection: Code(s): Z20.828 - Contact with and (suspected) exposure to other viral communicable diseases Status: Ruled-out Assessment and Plan: Informed of negative result on 11/18/2019. CXR reveals no acute cardiopulmonary findings. Patient endorses occasional cough. Febrile at 100.1 on 11/17 but has been afebrile since. Patient is 100% on room air * Discontinue droplet isolation. * Maintain goal O2 saturation of >92% (4) Weight loss: Code(s): R63.4 - Abnormal weight loss Status: Chronic Assessment and Plan: Patient endorses recent unintentional weight loss, poor appetite, and night s weats, which raises concern for malignancy. He believes he has lost 15 lbs in approximately 1 month. HIV is negative. TSH is within normal limits. * Hematology/oncology has been consulted and recommendations are greatly appreciated * Colonoscopy and EGD did not reveal suspicious findings * PEP and immunofixation workup pending (5) Left-sided chest wall pain: Code(s): R07.89 - Other chest pain Status: Acute Assessment and Plan: Secondary to recent fall and rib fractures. * Continue acetaminophen prn pain * Continue additional symptomatic treatment as needed. (6) Tachycardia: Code(s): R00.0 - Tachycardia, unspecified Status: Acute Assessment and Plan: Review of telemetry shows episode of tachycardia up to 143 on 11/18/2019. According to nursing staff, this episode correlated to patient ambulating from bed to restroom. Additional review reveals normal sinus rhythm. TSH within normal limits. Telemetry review today revealed infrequent episodes of tachycardia with highest 120. Heart rate is stable now. This may have been related to his profound anemia and expect improvement as he is stabilizing. * Will continue to monitor telemetry closely. * Tachycardia may additionally be related to profound anemia. Will continu
--- NOTE | 2019-11-19 14:39 | PM.IMPN ---
Progress Note: A&P Assessment and Plan (1) Symptomatic anemia: Code(s): D64.9 - Anemia, unspecified Status: Acute Assessment and Plan: At presentation, HGB 5.6 and HCT 20.4. Patient received a total of 2 units pRBC on 11/16. Today, Hgb is 7.8 and Hct 25.6. IFOB positive. Continue to monitor H&H q6H and transfuse as needed Continue fall precautions GI and hematology have been consulted and recommendations are greatly appreciated. Iron level and % saturation are low. Will begin IV iron infusion. Continue IV Protonix Underwent colonoscopy and EGD today. EGD was unremarkable. Colonoscopy revealed uncomplicated internal hemorrhoids with stigmata of bleeding. Small-bowel follow-through revealed normal caliber small bowel without mass or stricture and normal transit time. Protein electrophoresis is pending (2) Danica-rectal abscess: Code(s): K61.1 - Rectal abscess Status: Acute Assessment and Plan: Patient has history of perianal disease with history of surgical management of perianal abscess in [address] abdomen/pelvis reveals sacral skin thickening extending to anus. On exam, patient has thickened firm skin overlying sacrum to rectum. GI has been consulted and recommendations are appreciated. Patient underwent colonoscopy today revealing internal hemorrhoids with stigmata of bleeding. Patient may benefit from dermatology evaluation of perianal thickening which can be pursued as an outpatient. Discontinue IV Levaquin per GI. Serology pending as part of workup for IBD. (3) Suspected 2019 novel coronavirus infection: Code(s): Z20.828 - Contact with and (suspected) exposure to other viral communicable diseases Status: Ruled-out Assessment and Plan: Informed of negative result on 11/18/2019. CXR reveals no acute cardiopulmonary findings. Patient endorses occasional cough. Febrile at 100.1 on 11/17 but has been afebrile since. Patient is 100% on room air Discontinue droplet isolation. Maintain goal O2 saturation of >92% (4) Weight loss: Code(s): R63.4 - Abnormal weight loss Status: Chronic Assessment and Plan: Patient endorses recent unintentional weight loss, poor appetite, and night sweats, which raises concern for malignancy. He believes he has lost 15 lbs in approximately 1 month. HIV is negative. TSH is within normal limits. Hematology/oncology has been consulted and recommendations are greatly appreciated Colonoscopy and EGD did not reveal suspicious findings PEP and immunofixation workup pending (5) Left-sided chest wall pain: Code(s): R07.89 - Other chest pain Status: Acute Assessment and Plan: Secondary to recent fall and rib fractures. Continue acetaminophen prn pain Continue additional symptomatic treatment as needed. (6) Tachycardia: Code(s): R00.0 - Tachycardia, unspecified Status: Acute Assessment and Plan: Review of telemetry shows episode of tachycardia up to 143 on 11/18/2019. According to nursing staff, this episode correlated to patient ambulating from bed to restroom. Additional review reveals normal sinus rhythm. TSH within normal limits. Telemetry review today revealed infrequent episodes of tachycardia with highest 120. Heart rate is stable now. This may have been related to his profound anemia and expect improvement as he is stabilizing. Will continue to monitor telemetry closely. Tachycardia may additionally be related to profound anemia. Will continue to monitor H&H closely (7) HTN (hypertension) with goal to be determined: Code(s): I10 - Essential (primary) hypertension Status: Acute Assessment and Plan: Patient has a known history of HTN but was not on any antihypertensives. BP evaluated today and stable at 122/85. Blood pressure appears to be well controlled. Continue to monitor Additional Plan Will obtai
[2019-11-19 15:35] LABS: Hematocrit 26.9 % (42.0-52.0); Hemoglobin 8.2 g/dL (14.0-18.0)
[2019-11-19 15:49] LABS: Magnesium 1.4 mg/dL (1.6-2.3)
[2019-11-19] MEDS: IRON SUCROSE COMPLEX 200 MG in SODIUM CHLORIDE 0.9% IV 50 ML 120 MG IVPB (17:50)
[2019-11-19] MEDS: MAGNESIUM SULF 1 GM/D5W 100 ML 1 GM/100 ML BAG IVPB (18:35)
[2019-11-19] MEDS: IRON SUCROSE COMPLEX 500 MG in SODIUM CHLORIDE 0.9% IV 250 ML 78.6 MG IVPB (18:37)
[2019-11-19] MEDS: EUCERIN CREAM 120 GM JAR 1 APPLIC TOPICAL (18:39)
[2019-11-19 20:34] LABS: Hematocrit 24.7 % (42.0-52.0); Hemoglobin 7.5 g/dL (14.0-18.0)
[2019-11-20] VITALS (9 sets, daily range): BP systolic 111–118; BP diastolic 70–73; PULSE 70–108; RESP 16–18; TEMP 36.7–36.9; O2SAT 100
[2019-11-20 07:33] LABS: Basophils Absolute Auto 0.1 K/mm3 (0.0-0.1); Basophils Percent Auto 0.6 % (0.2-1.2); Eosinophils Absolute Auto 0.2 K/mm3 (0-0.3); Eosinophils Percent Auto 2.4 % (0-4.4); Hematocrit 23.8 % (42.0-52.0); Hemoglobin 7.2 g/dL (14.0-18.0); Immature Granulocyte Absolute 0.04 K/mm3 (0.00-0.031); Immature Granulocyte Percent A 0.4 % (0-0.5); Lymphocytes Absolute Auto 0.98 K/mm3 (0.9-3.2); Lymphocytes Percent Auto 10.2 % (18.3-44.2); Mean Corpuscular HGB Conc 30.3 g/dl (32-36); Mean Corpuscular Hemoglobin 25.5 pg (26-34); Mean Corpuscular Volume 84.4 fl (80-100); Mean Platelet Volume 8.8 fl (7.4-10.4); Monocytes Absolute Auto 0.9 K/mm3 (0.1-0.6); Monocytes Percent Auto 9.4 % (2.6-8.5); Neutrophils Absolute Auto 7.4 K/mm3 (1.3-6.7); Platelet Count Result 249 k/mm3 (150-375); Red Blood Count 2.82 M/mm3 (4.6-6.20); Red Cell Distribution Width 21.4 % (11.5-14.5); White Blood Count 9.6 K/mm3 (4.5-10.0)
[2019-11-20 07:49] LABS: Alanine Aminotransferase 8 U/L (4-50); Albumin Level 3.3 g/dL (3.5-5.1); Alkaline Phosphatase 99 U/L (38-126); Aspartate Amino Transferase 15 U/L (17-59); Bilirubin,Total 0.2 mg/dL (0.2-1.3); Blood Urea Nitrogen 3 mg/dL (9-20); Calcium 9.1 mg/dL (8.4-10.2); Carbon Dioxide 21 mmol/L (22-30); Chloride 107 mmol/L (98-107); Estimated CRCL calculation 104 ml/min; Estimated Glomerular Filt Rate > 60; Glucose 102 mg/dL (75-110); Magnesium 1.7 mg/dL (1.6-2.3); Potassium 3.4 mmol/L (3.4-5.0); Sodium 135 mmol/L (137-145)
--- NOTE | 2019-11-20 08:13 | WPDGIPROGNO ---
Progress Note: A&P Additional Plan Patient alert and comfortable this morning. Denies abdominal pain. No obvious bleeding has been reported. Physical exam reveals patient to be alert. Vital signs stable. Abdomen is soft and nontender. Serjio anal scar tissue around the buttocks. P history of previous abscess drainage. Impression 1. Anemia. Etiology uncertain. Agree with hemoglobin electrophoresis. He may benefit from hematology consultation. Small-bowel follow-through was unremarkable. Colonoscopy an EGD revealed only internal hemorrhoids. No obvious Crohn's disease. 2. Occult blood in stool. Appears to be explained by internal hemorrhoids identified. No clear etiology for anemia. Small-bowel follow-through was unremarkable. 3. Perianal scar tissue at the buttocks. May represent keloid formation. Likely scar tissue from previous abscess drainage. Concern over Crohn's disease serology is pending. But no other E evidence for Crohn's disease I feel this is unlikely at this time. Subjective Date/time seen: 11/20/19 08:13 Objective Data Vital Signs Vital Signs: Vital Signs - 24 hr 11/19/19 09:27 11/19/19 10:45 11/19/19 10:53 Temperature 37.2 C Pulse Rate 101 H 97 92 Respiratory Rate 17 16 20 Blood Pressure 136/90 114/78 121/88 Pulse Oximetry 100 100 100 11/19/19 11:03 11/19/19 12:00 11/19/19 14:00 Temperature 36.2 C L 36.3 C L Pulse Rate 85 71 80 Respiratory Rate 24 H 16 18 Blood Pressure 119/88 132/95 H 120/72 Pulse Oximetry 100 100 100 11/19/19 16:00 11/19/19 20:00 11/19/19 21:40 Temperature 36.8 C Pulse Rate 120 H 104 H 98 Respiratory Rate 18 Blood Pressure 118/76 Pulse Oximetry 100 11/20/19 00:00 11/20/19 04:00 11/20/19 06:00 Temperature 36.7 C Pulse Rate 108 H 70 82 Respiratory Rate 16 Blood Pressure 118/73 Pulse Oximetry 100 Intake/Output Intake/Output: Intake & Output 11/17/19 11/18/19 11/19/19 11/20/19 23:59 23:59 23:59 23:59 Intake Total 350 2240 4780 715 Output Total 1350 550 Balance 724 122 4687 715 Meds/Results Medications: Active Medications Generic Name Dose Route Start Last Admin Trade Name Ana PRN Reason Stop Dose Admin Acetaminophen 650 mg 11/18/19 10:33 11/18/19 21:15 Tylenol Tablet PO 650 mg Q4H PRN Administration Mild pain 1-3, Fever Pantoprazole Sodium 80 mg/ 500 mls @ 50 mls/hr 11/18/19 02:25 11/20/19 05:54 Dextrose IV CONT 50 mls/hr .Q10H TOSIN Administration Iron Sucrose 500 mg/ Sodium 275 mls @ 78.571 mls/hr 11/19/19 18:00 11/20/19 00:42 Chloride IVPB 11/21/19 21:29 Infused Q24H TOSIN Infusion Lidocaine HCl 0.3 ml 11/19/19 09:03 Xylocaine 2% Local Inj INTRADERM ONCE PRN to numb area Magnesium Oxide 200 mg 11/18/19 21:00 11/19/19 20:25 Mag-Ox PO 200 mg Q12HR TOSIN Administration Menthol/Methyl Salicylate 1 applic 11/19/19 17:23 Bengay Pain Relieving Cream TOPICAL BID PRN Muscle/Joint Pain Multi-Ingred Cream/Lotion/Oil/Oint 1 applic 11/19/19 09:00 11/19/19 18:39 Minerin Creme TOPICAL 1 applic [facility] Administration Radiology Results: ITS Impressions Chest X-Ray 11/17/19 15:18 IMPRESSION: No acute cardiopulmonary findings. Abdomen/Pelvis CT 11/17/19 17:45 IMPRESSION: 1. Skin thickening overlying sacrum extending to the anus, possible cellulitis or ulceration. Clinical correlation. Also some inflammation extending to the presacral space but no evidence of sacral osteomyelitis. 2. Rib fractures of varying ages including 2 left lower ribs in mid axillary line which appear relatively acute. 3. Unusual kidney enhancement pattern, could be nephropathy. 4. Borderline sized inguinal lymph nodes, most likely reactive. 5. Cholelithiasis. 6. No acute intra-abdominal findings. Upper GI and Small Bowel X-Ray 11/19/19 14:03 IMPRESSION: 1. Normal small bowel series. Knee X-Ray 11/19/19 18:28
[2019-11-20] MEDS: EUCERIN CREAM 120 GM JAR 1 APPLIC TOPICAL (08:37)
[2019-11-20] MEDS: ACETAMINOPHEN 325 MG TABLET 650 MG PO (08:37)
[2019-11-20] MEDS: MENTHOL 10% / METHYL SALICYLATE 15% 57 GM TUBE 1 APPLIC TOPICAL (08:38)
[2019-11-20] MEDS: MAGNESIUM OXIDE 200 MG TABLET PO ×2 (08:38→20:25)
[2019-11-20 12:45] LABS: Hematocrit 23.5 % (42.0-52.0); Hemoglobin 7.2 g/dL (14.0-18.0)
--- NOTE | 2019-11-20 15:23 | PM.IMPN ---
Progress Note: A&P Assessment and Plan (1) Symptomatic anemia: Code(s): D64.9 - Anemia, unspecified Status: Acute Assessment and Plan: At presentation, HGB 5.6 and HCT 20.4. Patient received a total of 2 units pRBC on 11/16. Today, Hgb is 7.2 and Hct 23.8. Levels have been fluctuating in the 7-8 range. IFOB positive, likely due to internal hemorrhoids. Continue to monitor H&H q6H and transfuse as needed Continue fall precautions GI and hematology have been consulted and recommendations are greatly appreciated. Iron level and % saturation are low. Continue IV iron infusion. Continue IV Protonix Underwent colonoscopy and EGD on 11/19/2019. EGD was unremarkable. Colonoscopy revealed uncomplicated internal hemorrhoids with stigmata of bleeding. Small-bowel follow-through revealed normal caliber small bowel without mass or stricture and normal transit time. Protein electrophoresis is pending as well as serum immunofixation. Hopeful discharge tomorrow pending stable hemoglobin. He will continue oral iron supplements TID at discharge and will need to follow-up with Dr. Dominguez in 2 weeks. Pending results of lab work, he may need to undergo bone marrow biopsy as an outpatient. (2) Danica-rectal abscess: Code(s): K61.1 - Rectal abscess Status: Acute Assessment and Plan: Patient has history of perianal disease with history of surgical management of perianal abscess in [address] abdomen/pelvis reveals sacral skin thickening extending to anus. On exam, patient has thickened firm skin overlying sacrum to rectum. GI has been consulted and recommendations are appreciated. Patient underwent colonoscopy on 11/18 revealing internal hemorrhoids with stigmata of bleeding. Patient may benefit from dermatology evaluation of perianal thickening which can be pursued as an outpatient. Discontinue IV Levaquin per GI. Serology pending as part of workup for Crohn's disease, which may explain perianal disease. No evidence of Crohn's disease on colonoscopy. (3) Weight loss: Code(s): R63.4 - Abnormal weight loss Status: Chronic Assessment and Plan: Patient endorses recent unintentional weight loss, poor appetite, and night sweats, which raises concern for malignancy. He believes he has lost 15 lbs in approximately 1 month. HIV is negative. TSH is within normal limits. During his hospital stay, he denies any further night sweats. His appetite seems to have improved. Hematology/oncology has been consulted and recommendations are greatly appreciated Colonoscopy and EGD did not reveal suspicious findings PEP and immunofixation workup pending. He will need to follow-up with Dr. Dominguez as an outpatient (4) Left-sided chest wall pain: Code(s): R07.89 - Other chest pain Status: Acute Assessment and Plan: Secondary to recent fall and rib fractures. Continue acetaminophen prn pain Continue additional symptomatic treatment as needed. (5) Tachycardia: Code(s): R00.0 - Tachycardia, unspecified Status: Acute Assessment and Plan: Review of telemetry shows episode of tachycardia up to 143 on 11/18/2019. According to nursing staff, this episode correlated to patient ambulating from bed to restroom. Additional review reveals normal sinus rhythm. TSH within normal limits. Telemetry review today revealed infrequent episodes of sinus tachycardia with highest 116.This may have been related to his profound anemia and expect improvement as he is stabilizing. Will continue to monitor telemetry closely. (6) HTN (hypertension) with goal to be determined: Code(s): I10 - Essential (primary) hypertension Status: Acute Assessment and Plan: Patient has a known history of HTN but was not on any antihypertensives. BP evaluated today and stable at 118/73. Blood pressure appears to be well controlled. Continue to monitor
[2019-11-20] MEDS: IRON SUCROSE COMPLEX 500 MG in SODIUM CHLORIDE 0.9% IV 250 ML 78 MG IVPB (18:03)
[2019-11-20 19:14] LABS: Hematocrit 24.4 % (42.0-52.0); Hemoglobin 7.3 g/dL (14.0-18.0)
--- NOTE | 2019-11-20 22:55 | PC.NURSE ---
Pt requested his wallet to be given back to him from the safe. Money was counted and all credit cards were intact.
[2019-11-20 23:25] LABS: Hematocrit 23.5 % (42.0-52.0); Hemoglobin 7.2 g/dL (14.0-18.0)
[2019-11-21] VITALS (13 sets, daily range): BP systolic 109–124; BP diastolic 58–79; PULSE 77–96; RESP 16–18; TEMP 36.6–37.2; O2SAT 99–100
[2019-11-21 06:36] LABS: Basophils Absolute Auto 0.1 K/mm3 (0.0-0.1); Basophils Percent Auto 0.7 % (0.2-1.2); Eosinophils Absolute Auto 0.3 K/mm3 (0-0.3); Eosinophils Percent Auto 2.9 % (0-4.4); Hematocrit 23.8 % (42.0-52.0); Hemoglobin 7.2 g/dL (14.0-18.0); Immature Granulocyte Absolute 0.06 K/mm3 (0.00-0.031); Immature Granulocyte Percent A 0.6 % (0-0.5); Lymphocytes Absolute Auto 1.15 K/mm3 (0.9-3.2); Mean Corpuscular HGB Conc 30.3 g/dl (32-36); Mean Corpuscular Hemoglobin 25.8 pg (26-34); Mean Corpuscular Volume 85.3 fl (80-100); Mean Platelet Volume 8.6 fl (7.4-10.4); Monocytes Absolute Auto 1.2 K/mm3 (0.1-0.6); Monocytes Percent Auto 11.6 % (2.6-8.5); Neutrophils Absolute Auto 7.7 K/mm3 (1.3-6.7); Neutrophils Percent Auto 73.2 % (45.5-73.1); Platelet Count Result 240 k/mm3 (150-375); Red Blood Count 2.79 M/mm3 (4.6-6.20); Red Cell Distribution Width 22.3 % (11.5-14.5); White Blood Count 10.5 K/mm3 (4.5-10.0)
[2019-11-21 06:53] LABS: Blood Urea Nitrogen 4 mg/dL (9-20); Calcium 8.7 mg/dL (8.4-10.2); Carbon Dioxide 21 mmol/L (22-30); Chloride 105 mmol/L (98-107); Estimated CRCL calculation 104 ml/min; Estimated Glomerular Filt Rate > 60; Glucose 102 mg/dL (75-110); Potassium 3.5 mmol/L (3.4-5.0); Sodium 133 mmol/L (137-145)
[2019-11-21] MEDS: ACETAMINOPHEN 325 MG TABLET 650 MG PO (07:58)
[2019-11-21] MEDS: EUCERIN CREAM 120 GM JAR 1 APPLIC TOPICAL (07:59)
[2019-11-21] MEDS: MAGNESIUM OXIDE 200 MG TABLET PO ×2 (07:59→20:48)
[2019-11-21] MEDS: MENTHOL 10% / METHYL SALICYLATE 15% 57 GM TUBE 1 APPLIC TOPICAL (07:59)
--- NOTE | 2019-11-21 08:30 | WPDGIPROGNO ---
Progress Note: A&P Additional Plan Patient unchanged. No obvious signs for GI blood loss. Physical exam reveals Vital Signs to be stable. He is anicteric. Abdomen is benign. He has perianal scar tissue. On the buttocks. impression 1. Anemia. Etiology unclear. Suggest Hematology consultation. Hemoglobin electrophoresis pending. 2. Danica anal scar tissue. May represent keloid formation. Because of concern for Crohn's disease serology is pending. This is nonspecific but may help differentiate from other conditions. He does have a history of perianal abscess drainage that likely is the etiology for the scar. 3. Occult blood in stool. Likely related to internal hemorrhoids identified at colonoscopy. Unlikely for this to contribute to anemia. Consider small bowel capsule study if anemia persist as an outpatient. Plan is for patient to be discharge when primary care service agrees. Hematology follow-up encourage. Subjective Date/time seen: 11/21/19 08:30 Objective Data Vital Signs Vital Signs: Vital Signs - 24 hr 11/20/19 12:00 11/20/19 14:00 11/20/19 16:00 Temperature 36.7 C Pulse Rate 81 89 83 Respiratory Rate 16 Blood Pressure 111/73 Pulse Oximetry 100 11/20/19 20:00 11/20/19 22:00 11/21/19 00:00 Temperature 36.9 C Pulse Rate 87 82 86 Respiratory Rate 18 Blood Pressure 115/70 Pulse Oximetry 100 11/21/19 04:00 11/21/19 06:00 Temperature 37.2 C Pulse Rate 77 87 Respiratory Rate 18 Blood Pressure 115/67 Pulse Oximetry 100 Intake/Output Intake/Output: Intake & Output 11/18/19 11/19/19 11/20/19 11/21/19 23:59 23:59 23:59 23:59 Intake Total 2240 4780 2400 850 Output Total 1350 342 375 3875 Balance 890 4230 1600 -200 Meds/Results Medications: Active Medications Generic Name Dose Route Start Last Admin Trade Name Freq PRN Reason Stop Dose Admin Acetaminophen 650 mg 11/18/19 10:33 11/21/19 07:58 Tylenol Tablet PO 650 mg Q4H PRN Administration Mild pain 1-3, Fever Pantoprazole Sodium 80 mg/ 500 mls @ 50 mls/hr 11/18/19 02:25 11/21/19 05:47 Dextrose IV CONT 50 mls/hr .Q10H TOSIN Administration Iron Sucrose 500 mg/ Sodium 275 mls @ 78.571 mls/hr 11/19/19 18:00 11/20/19 21:50 Chloride IVPB 11/21/19 21:29 Infused Q24H TOSIN Infusion Lidocaine HCl 0.3 ml 11/19/19 09:03 Xylocaine 2% Local Inj INTRADERM ONCE PRN to numb area Magnesium Oxide 200 mg 11/18/19 21:00 11/21/19 07:59 Mag-Ox PO 200 mg Q12HR TOSIN Administration Menthol/Methyl Salicylate 1 applic 11/19/19 17:23 11/21/19 07:59 Bengay Pain Relieving Cream TOPICAL 1 applic BID PRN Administration Muscle/Joint Pain Multi-Ingred Cream/Lotion/Oil/Oint 1 applic 11/19/19 09:00 11/20/19 08:37 Minerin Creme TOPICAL 1 applic QAM TOSIN Administration Radiology Results: ITS Impressions Chest X-Ray 11/17/19 15:18 IMPRESSION: No acute cardiopulmonary findings. Abdomen/Pelvis CT 11/17/19 17:45 IMPRESSION: 1. Skin thickening overlying sacrum extending to the anus, possible cellulitis or ulceration. Clinical correlation. Also some inflammation extending to the presacral space but no evidence of sacral osteomyelitis. 2. Rib fractures of varying ages including 2 left lower ribs in mid axillary line which appear relatively acute. 3. Unusual kidney enhancement pattern, could be nephropathy. 4. Borderline sized inguinal lymph nodes, most likely reactive. 5. Cholelithiasis. 6. No acute intra-abdominal findings. Upper GI and Small Bowel X-Ray 11/19/19 14:03 IMPRESSION: 1. Normal small bowel series. Knee X-Ray 11/19/19 18:28 IMPRESSION: 1. Right knee exam without acute osseous findings. Labs Labs: Laboratory Results - last 24 hr 11/20/19 11/20/19 11/20/19 12:23 18:24 23:11 WBC RBC Hgb 7.2 L 7.3 L 7.2 L Hct 23.5 L 24.4 L 23.5 L MCV MCH MCHC RDW
--- NOTE | 2019-11-21 11:59 | PCNFU ---
Nutrition Follow-Up Complete: Underweight R/T inadequate oral intake for energy needs as evidence by BMI of 17.5 Goal: PO intake of meals and supplements at 75% or greater to promote wt gain Progressing towards goal. We will continue current goal. Pt current nutrition is Regular. Nutrition recommendation:Agree Last recorded weight is 67 kg. Bowel Motility:+BM 11/18 reported Labs Reviewed:Na 133,BUN 4,Hct 23.8,Hgb 7.2 Meds Noted:Mag Ox Additional Notes: Spoke with patient over telephone today due to COVID 19 precautions. Patient states to tolerating regular diet. Oral Intake reporting 75% of meals. Possible discharge today. Monitoring: wt, po intake, diet, labs every 5 days
--- NOTE | 2019-11-21 13:35 | PM.IMPN ---
Progress Note: A&P Assessment and Plan (1) Symptomatic anemia: Code(s): D64.9 - Anemia, unspecified Status: Acute Assessment and Plan: At presentation, HGB 5.6 and HCT 20.4. Patient received a total of 2 units pRBC on 11/16. Today, Hgb is 7.2 and Hct 23.8. Levels have been fluctuating in the 7-8 range. IFOB positive, likely due to internal hemorrhoids. On telemetry review, he was noted to be tachycardic in 170s. Will transfuse 1 unit pRBC given symptomatic anemia evident by tachycardia Continue to monitor H&H q6H Continue fall precautions Iron level and % saturation are low. Continue IV iron infusion. Continue IV Protonix Underwent colonoscopy and EGD on 11/19/2019. EGD was unremarkable. Colonoscopy revealed uncomplicated internal hemorrhoids with stigmata of bleeding. Small-bowel follow-through revealed normal caliber small bowel without mass or stricture and normal transit time. Anemia is unlikely GI related. Protein electrophoresis is pending as well as serum immunofixation. He will need to follow-up with Dr. Dominguez in 2 weeks and continue oral iron supplements TID at discharge. Pending results of lab work, he may need to undergo bone marrow biopsy as an outpatient. (2) Danica-rectal abscess: Code(s): K61.1 - Rectal abscess Status: Acute Assessment and Plan: Patient has history of perianal disease with history of surgical management of perianal abscess in [address] abdomen/pelvis reveals sacral skin thickening extending to anus. On exam, patient has thickened firm skin overlying sacrum to rectum. GI has been consulted and recommendations are appreciated. Patient underwent colonoscopy on 11/18 revealing internal hemorrhoids with stigmata of bleeding. Perianal thickening evaluated by wound care felt to be related to hidradenitis suppurativa. He will need to follow up outpatient with PCP and may benefit from dermatology referral. IV Levaquin discontinued on 11/17. Serology pending as part of workup for Crohn's disease, which may explain perianal disease. No evidence of Crohn's disease on colonoscopy. (3) Weight loss: Code(s): R63.4 - Abnormal weight loss Status: Chronic Assessment and Plan: Patient endorses recent unintentional weight loss, poor appetite, and night sweats, which raises concern for malignancy. He believes he has lost 15 lbs in approximately 1 month. HIV is negative. TSH is within normal limits. During his hospital stay, he denies any further night sweats. His appetite seems to have improved. Hematology/oncology has been consulted and recommendations are greatly appreciated Colonoscopy and EGD did not reveal suspicious findings PEP and immunofixation workup pending. He will need to follow-up with Dr. Dominguez as an outpatient (4) Tachycardia: Code(s): R00.0 - Tachycardia, unspecified Status: Acute Assessment and Plan: Review of telemetry shows episode of tachycardia up to 143 on 11/18/2019. According to nursing staff, this episode correlated to patient ambulating from bed to restroom. Additional review reveals normal sinus rhythm. TSH within normal limits. Telemetry review today revealed episode of tachycardia in 170s, likely due to symptomatic anemia. Will continue to monitor telemetry closely. Transfuse 1 unit pRBC (5) HTN (hypertension) with goal to be determined: Code(s): I10 - Essential (primary) hypertension Status: Acute Assessment and Plan: Patient has a known history of HTN but was not on any antihypertensives. BP evaluated today and stable at 115/67. Blood pressure appears to be well controlled. Continue to monitor (6) Musculoskeletal pain: Code(s): M79.18 - Myalgia, other site Status: Acute Assessment and Plan: Patient complains of left sided chest wall pain secondary to recent fall and rib fractures. Additionally, complains of right knee
--- NOTE | 2019-11-21 14:52 | WPDONCPN ---
Progress Note: A/P - Additional Plan Iron deficiency anemia. EGD showed no abnormalities. Colonoscopy only showed internal hemorrhoids with stigmata of bleeding. Serum protein electrophoresis pending. No evidence of hemolytic anemia. Patient is receiving IV iron infusion. Patient is also going to receive blood transfusion today as he was symptomatic with tachycardia when he tried to walk. He should be able to go home today after iron infusion today to follow up with me in the office in 2 weeks. I have also instructed him to take oral iron 3 times a day on discharge. - Time Spent With Patient Total time spent is greater than 50% in coordination of care (as documented) at patient's floor/unit and/or counseling patient: 15 - 25 minutes Subjective Interval history: Iron deficiency anemia Review of Systems - Review of Systems Patient denies any chest pain and shortness of breath. He denies any bleeding and bruising. He remains tired and fatigued. Eating well. No other new complaints. Exam Vital signs: Temp Pulse Resp BP Pulse Ox 37.2 C 96 18 115/67 100 11/21/19 06:00 11/21/19 12:00 11/21/19 06:00 11/21/19 06:00 11/21/19 06:00 Narrative: Lungs are clear to auscultation bilaterally Cardiovascular regular rate rhythm no murmurs Abdomen soft nontender nondistended Extremities no edema PN: Objective Data - Labs CBC & Chem 7: 11/21/19 06:21 11/21/19 06:21 Labs: Laboratory Results - last 24 hr 11/18/19 11/20/19 11/20/19 17:21 18:24 23:11 WBC RBC Hgb 7.3 L 7.2 L Hct 24.4 L 23.5 L MCV MCH MCHC RDW Plt Count MPV Immature Gran % (Auto) Neut % (Auto) Lymph % (Auto) [place] % (Auto) Eos % (Auto) Baso % (Auto) Lymph # (Auto) [place] # (Auto) Eos # (Auto) Baso # (Auto) Abs Immat Gran (auto) Absolute Neuts (auto) Absolute Nucleated RBC Nucleated RBC % Sodium Potassium Chloride Carbon Dioxide BUN Creatinine Estim Creat Clear Calc Estimated GFR Glucose Calcium Serum Immunofixation see below 11/21/19 11/21/19 06:21 06:21 WBC 10.5 H RBC 2.79 L Hgb 7.2 L Hct 23.8 L MCV 85.3 MCH 25.8 L MCHC 30.3 L RDW 22.3 H Plt Count 240 MPV 8.6 Immature Gran % (Auto) 0.6 H Neut % (Auto) 73.2 H Lymph % (Auto) 11.0 L [place] % (Auto) 11.6 H Eos % (Auto) 2.9 Baso % (Auto) 0.7 Lymph # (Auto) 1.15 [place] # (Auto) 1.2 H Eos # (Auto) 0.3 Baso # (Auto) 0.1 Abs Immat Gran (auto) 0.06 H Absolute Neuts (auto) 7.7 H Absolute Nucleated RBC 0.0 Nucleated RBC % 0.0 Sodium 133 L Potassium 3.5 Chloride 105 Carbon Dioxide 21 L BUN 4 L Creatinine 0.70 Estim Creat Clear Calc 104 Estimated GFR > 60 Glucose 102 Calcium 8.7 Serum Immunofixation
[2019-11-21] MEDS: SODIUM CHLORIDE 0.9% IV 250 ML 30 ML IV CONT (15:45)
[2019-11-21 19:56] LABS: Haptoglobin 345 mg/dL (43-212)
[2019-11-21 21:29] LABS: Hematocrit 29.2 % (42.0-52.0)
[2019-11-21 21:46] LABS: ANCA Screen Negative (Negative); Myeloperoxidase Ab <1.0 AI (<1.0); Proteinase-3 Ab <1.0 AI (<1.0); S cerevisiae Ab (IgA) 11.4 U (<=20.0); S cerevisiae Ab (IgG) 10.8 U (<=20.0)
[2019-11-22] VITALS (9 sets, daily range): BP systolic 99–138; BP diastolic 61–85; PULSE 60–125; RESP 16–21; TEMP 36.4–37.2; O2SAT 98–100
[2019-11-22] MEDS: ACETAMINOPHEN 325 MG TABLET 650 MG PO ×3 (03:43→20:23)
[2019-11-22 06:42] LABS: Basophils Absolute Auto 0.1 K/mm3 (0.0-0.1); Basophils Percent Auto 0.7 % (0.2-1.2); Eosinophils Absolute Auto 0.3 K/mm3 (0-0.3); Eosinophils Percent Auto 2.5 % (0-4.4); Hematocrit 27.1 % (42.0-52.0); Hemoglobin 8.5 g/dL (14.0-18.0); Immature Granulocyte Absolute 0.07 K/mm3 (0.00-0.031); Immature Granulocyte Percent A 0.7 % (0-0.5); Lymphocytes Absolute Auto 1.26 K/mm3 (0.9-3.2); Lymphocytes Percent Auto 11.7 % (18.3-44.2); Mean Corpuscular HGB Conc 31.4 g/dl (32-36); Mean Corpuscular Hemoglobin 26.4 pg (26-34); Mean Corpuscular Volume 84.2 fl (80-100); Mean Platelet Volume 9.1 fl (7.4-10.4); Monocytes Absolute Auto 1.5 K/mm3 (0.1-0.6); Monocytes Percent Auto 13.8 % (2.6-8.5); Neutrophils Absolute Auto 7.6 K/mm3 (1.3-6.7); Neutrophils Percent Auto 70.6 % (45.5-73.1); Platelet Count Result 263 k/mm3 (150-375); Red Blood Count 3.22 M/mm3 (4.6-6.20); Red Cell Distribution Width 21.5 % (11.5-14.5); White Blood Count 10.8 K/mm3 (4.5-10.0)
[2019-11-22 06:57] LABS: Alanine Aminotransferase 10 U/L (4-50); Albumin Level 3.4 g/dL (3.5-5.1); Alkaline Phosphatase 95 U/L (38-126); Aspartate Amino Transferase 23 U/L (17-59); Bilirubin,Total 0.4 mg/dL (0.2-1.3); Blood Urea Nitrogen 9 mg/dL (9-20); Carbon Dioxide 21 mmol/L (22-30); Chloride 105 mmol/L (98-107); Estimated CRCL calculation 104 ml/min; Estimated Glomerular Filt Rate > 60; Glucose 106 mg/dL (75-110); Magnesium 1.5 mg/dL (1.6-2.3); Potassium 3.7 mmol/L (3.4-5.0); Sodium 135 mmol/L (137-145)
[2019-11-22] MEDS: EUCERIN CREAM 120 GM JAR 1 APPLIC TOPICAL (09:24)
[2019-11-22] MEDS: MAGNESIUM OXIDE 200 MG TABLET PO ×2 (09:24→20:23)
--- NOTE | 2019-11-22 15:21 | PM.IMPN ---
Progress Note: A&P Assessment and Plan (1) Symptomatic anemia: Code(s): D64.9 - Anemia, unspecified Status: Acute Assessment and Plan: At presentation, HGB 5.6 and HCT 20.4. Patient received a total of 2 units pRBC on 11/16. IFOB positive, likely due to internal hemorrhoids. He was transfused 1 unit PRBC on 11/21/2019 as he was symptomatic evident by tachycardia. Today, Hgb 8.5 and Hct 27.1. Continue to monitor H&H closely. Continue fall precautions Iron level and % saturation are low. Continue IV iron infusion. Iron infusion held yesterday given pRBC transfusion. Continue IV Protonix Underwent colonoscopy and EGD on 11/19/2019. EGD was unremarkable. Colonoscopy revealed uncomplicated internal hemorrhoids with stigmata of bleeding. Small-bowel follow-through revealed normal caliber small bowel without mass or stricture and normal transit time. Anemia is unlikely GI related. Protein electrophoresis is pending. Serum immunofixation reveals no monoclonal proteins. He will need to follow-up with Dr. Dominguez in 2 weeks and continue oral iron supplements TID at discharge. Pending results of lab work, he may need to undergo bone marrow biopsy as an outpatient. (2) Danica-rectal abscess: Code(s): K61.1 - Rectal abscess Status: Acute Assessment and Plan: Patient has history of perianal disease with history of surgical management of perianal abscess in [address] abdomen/pelvis reveals sacral skin thickening extending to anus. On exam, patient has thickened firm skin overlying sacrum to rectum. GI has been consulted and recommendations are appreciated. Patient underwent colonoscopy on 11/18 revealing internal hemorrhoids with stigmata of bleeding. Perianal thickening evaluated by wound care felt to be related to hidradenitis suppurativa. He will need to follow up outpatient with PCP and may benefit from dermatology referral. IV Levaquin discontinued on 11/17. S. cerevisiae IgG and IgA tested to evaluate for possible Crohn's disease, which may explain perianal disease. Levels are low and do not reflect evidence of Crohn's disease. No evidence of Crohn's disease on colonoscopy. (3) Weight loss: Code(s): R63.4 - Abnormal weight loss Status: Chronic Assessment and Plan: Patient endorses recent unintentional weight loss, poor appetite, and night sweats, which raises concern for malignancy. He believes he has lost 15 lbs in approximately 1 month. HIV is negative. TSH is within normal limits. His appetite has been good. Hematology/oncology has been consulted and recommendations are greatly appreciated Colonoscopy and EGD did not reveal suspicious findings PEP pending. He will need to follow-up with Dr. Dominguez as an outpatient (4) Tachycardia: Code(s): R00.0 - Tachycardia, unspecified Status: Acute Assessment and Plan: Patient has been monitor with telemetry and has been had several noted episodes of sinus tachycardia up to 170s. Most episodes correlate with activity or ambulation. Patient is asymptomatic during episodes. I suspect tachycardia is related to hypovolemia given profound anemia, but will continue further workup. Telemetry today reveals sinus tachycardia up to 140. At rest, HR is stable. Will order chest CTA to rule out PE. Will continue to monitor telemetry closely. (5) HTN (hypertension) with goal to be determined: Code(s): I10 - Essential (primary) hypertension Status: Acute Assessment and Plan: Patient has a known history of HTN but was not on any antihypertensives. BP evaluated today and low at 99/84. He is asymptomatic. Additional blood pressures have been well controlled. Continue to monitor (6) Musculoskeletal pain: Code(s): M79.18 - Myalgia, other site Status: Acute Assessment and Plan: Patient complains of left sided chest wall pain secondary to recent fall and r
[2019-11-22 18:10] LABS: Hematocrit 30.3 % (42.0-52.0); Hemoglobin 9.3 g/dL (14.0-18.0)
[2019-11-22] MEDS: MELATONIN 5 MG TABLET PO (20:23)
[2019-11-22] MEDS: IRON SUCROSE COMPLEX 500 MG in SODIUM CHLORIDE 0.9% IV 250 ML 78 MG IVPB (21:07)
[2019-11-23] VITALS (16 sets, daily range): BP systolic 90–140; BP diastolic 56–89; PULSE 71–135; RESP 16–18; TEMP 36.7–37; O2SAT 99–100
[2019-11-23] MEDS: ACETAMINOPHEN 325 MG TABLET 650 MG PO (02:38)
[2019-11-23 05:06] LABS: Albumin 2.8 g/dL (3.8-4.8); Alpha 1 Globulin 0.5 g/dL (0.2-0.3); Alpha 2 Globulin 0.9 g/dL (0.5-0.9); Beta 1 Globulin 0.6 g/dL (0.4-0.6); Gamma Globulin 1.7 g/dL (0.8-1.7); Protein, Total 7.1 g/dL (6.1-8.1)
[2019-11-23 07:03] LABS: Basophils Absolute Auto 0.1 K/mm3 (0.0-0.1); Basophils Percent Auto 0.7 % (0.2-1.2); Eosinophils Absolute Auto 0.3 K/mm3 (0-0.3); Eosinophils Percent Auto 2.4 % (0-4.4); Hematocrit 28.1 % (42.0-52.0); Hemoglobin 8.7 g/dL (14.0-18.0); Immature Granulocyte Absolute 0.07 K/mm3 (0.00-0.031); Immature Granulocyte Percent A 0.7 % (0-0.5); Lymphocytes Absolute Auto 1.24 K/mm3 (0.9-3.2); Lymphocytes Percent Auto 11.9 % (18.3-44.2); Mean Corpuscular Hemoglobin 26.5 pg (26-34); Mean Corpuscular Volume 85.7 fl (80-100); Mean Platelet Volume 9.4 fl (7.4-10.4); Monocytes Absolute Auto 1.5 K/mm3 (0.1-0.6); Neutrophils Absolute Auto 7.4 K/mm3 (1.3-6.7); Neutrophils Percent Auto 70.3 % (45.5-73.1); Platelet Count Result 299 k/mm3 (150-375); Red Blood Count 3.28 M/mm3 (4.6-6.20); Red Cell Distribution Width 22.3 % (11.5-14.5); White Blood Count 10.4 K/mm3 (4.5-10.0)
[2019-11-23 07:21] LABS: Alanine Aminotransferase 16 U/L (4-50); Albumin Level 3.5 g/dL (3.5-5.1); Alkaline Phosphatase 105 U/L (38-126); Aspartate Amino Transferase 35 U/L (17-59); Bilirubin,Total 0.2 mg/dL (0.2-1.3); Blood Urea Nitrogen 7 mg/dL (9-20); Calcium 9.3 mg/dL (8.4-10.2); Carbon Dioxide 20 mmol/L (22-30); Chloride 104 mmol/L (98-107); Estimated CRCL calculation 104 ml/min; Estimated Glomerular Filt Rate > 60; Glucose 104 mg/dL (75-110); Magnesium 1.5 mg/dL (1.6-2.3); Potassium 3.7 mmol/L (3.4-5.0); Sodium 134 mmol/L (137-145)
[2019-11-23] MEDS: EUCERIN CREAM 120 GM JAR 1 APPLIC TOPICAL (09:26)
[2019-11-23] MEDS: MAGNESIUM SULF 1 GM/D5W 100 ML 1 GM/100 ML BAG IVPB (09:26)
[2019-11-23] MEDS: THIAMINE HCL 100 MG TABLET PO (09:26)
--- NOTE | 2019-11-23 10:39 | ECG_ITS ---
Measurements Intervals [place] Rate: 78 P: 44 MN: 130 QRS: 62 QRSD: 90 T: 74 QT: 371 QTc: 425 Interpretive Statements SINUS RHYTHM POSSIBLE LEFT ATRIAL ENLARGEMENT POSSIBLE LEFT VENTRICULAR HYPERTROPHY BORDERLINE ECG Electronically Signed On 11-23-2019 13:44:08 CDT by Marcelino Mccurdy D.O.
[2019-11-23] MEDS: SODIUM CHLORIDE 0.9% IV 500 ML IV CONT (10:59)
--- NOTE | 2019-11-23 11:06 | PM.IMPN ---
Progress Note: A&P Assessment and Plan (1) Symptomatic anemia: Code(s): D64.9 - Anemia, unspecified Status: Acute Assessment and Plan: At presentation, HGB 5.6 and HCT 20.4. Patient received a total of 2 units pRBC on 11/16. IFOB positive, likely due to internal hemorrhoids. He was transfused 1 unit PRBC on 11/21/2019 as he was symptomatic evident by tachycardia. Today, Hgb 8.7 and Hct 28.1. Continue to monitor H&H closely. Continue fall precautions Received 3 IV iron infusions. Will transition to oral iron supplementation. Continue IV Protonix Underwent colonoscopy and EGD on 11/19/2019. EGD was unremarkable. Colonoscopy revealed uncomplicated internal hemorrhoids with stigmata of bleeding. Small-bowel follow-through revealed normal caliber small bowel without mass or stricture and normal transit time. Anemia is unlikely GI related. Protein electrophoresis is pending. Serum immunofixation reveals no monoclonal proteins. He will need to follow-up with Dr. Dominguez in 2 weeks and continue oral iron supplements TID at discharge. Pending results of lab work, he may need to undergo bone marrow biopsy as an outpatient. (2) Tachycardia: Code(s): R00.0 - Tachycardia, unspecified Status: Acute Assessment and Plan: Patient has been monitored with telemetry and has had several episodes of sinus tachycardia with highest in 170s. Episodes seem to correlate with activity or ambulation. Patient is asymptomatic during episodes. I suspect tachycardia is related to hypovolemia given profound anemia. Telemetry today reveals sinus tachycardia up to 140. At rest, HR is stable. Chest CT performed 11/21 was negative for PE. Exhibited orthostatic hypotension today. Will give fluid bolus and repeat orthostatics. Order echo to be obtained tomorrow. Monitor electrolytes Will continue to monitor telemetry closely. (3) Danica-rectal abscess: Code(s): K61.1 - Rectal abscess Status: Acute Assessment and Plan: Patient has history of perianal disease with history of surgical management of perianal abscess in [address] abdomen/pelvis reveals sacral skin thickening extending to anus. On exam, patient has thickened firm skin overlying sacrum to rectum. GI has been consulted and recommendations are appreciated. Patient underwent colonoscopy on 11/18 revealing internal hemorrhoids with stigmata of bleeding. Perianal thickening evaluated by wound care felt to be related to hidradenitis suppurativa. He will need to follow up outpatient with PCP and may benefit from dermatology referral. IV Levaquin discontinued on 11/17. S. cerevisiae IgG and IgA tested to evaluate for possible Crohn's disease, which may explain perianal disease. Levels are low and do not reflect evidence of Crohn's disease. No evidence of Crohn's disease on colonoscopy. (4) Weight loss: Code(s): R63.4 - Abnormal weight loss Status: Chronic Assessment and Plan: Patient endorses recent unintentional weight loss, poor appetite, and night sweats, which raises concern for malignancy. He believes he has lost 15 lbs in approximately [address] chest abdomen pelvis with no obvious findings suggest a malignancy. There is borderline size inguinal lymph nodes noted on CT, however probably reactive. GI workup did not reveal malignancy. HIV is negative. TSH is within normal limits. His appetite has been good. Hematology/oncology has been consulted and recommendations are greatly appreciated PEP pending. He will need to follow-up with Dr. Dominguez as an outpatient (5) HTN (hypertension) with goal to be determined: Code(s): I10 - Essential (primary) hypertension Status: Acute Assessment and Plan: Patient has a known history of HTN but was not on any antihypertensives. BP evaluated today and stable at 124/78. He is asymptomatic. Additional blood pressures have been well controlled.
[2019-11-23] MEDS: FERROUS GLUCONATE 324 MG TABLET PO ×2 (12:56→17:18)
[2019-11-23 16:41] LABS: Soluble Transferrin Receptor 3.01 mg/L (0.76-1.76)
[2019-11-23] MEDS: MELATONIN 5 MG TABLET PO (20:43)
[2019-11-24] VITALS (16 sets, daily range): BP systolic 86–145; BP diastolic 58–91; PULSE 74–142; RESP 16–20; TEMP 36.4–37.2; O2SAT 98–100
--- NOTE | 2019-11-24 | ECHO_ITS ---
Patient Info Name: Rafy Davis Age: 49 years : 1970 Gender: Male Ht: 77 in Wt: 148 lbs BSA: 1.89 m2 HR: 75 bpm BP: 121 / 76 mmHg Heart Rhythm: Sinus Rhythm Technical Quality: Good Exam Date: 11/24/2019 3:17 PM Exam Location: [facility] Card Pulmonary Patient Status: Inpatient Admit Date: 11/19/2019 Staff Ordering Physician: Margaret Jimenez PA-C Mechanical Systems Control Engineer: Maicol Dietrich RDCS Attending Provider: Margaret Jimenez PA-C Referring Physician: Barbara WINSTON; Exam Type: CA echo doppler color flow Study Info Indications R00.0 - Tachycardia, unspecified Complete two-dimensional, color flow and Doppler transthoracic echocardiogram is performed. Strain analysis performed. History/Risk Factors Orthostatic HoTN w/ tachycardia; Anemia. Summary 1. Left ventricular chamber dimension is normal. 2. Left ventricular systolic function is normal, estimated at 60-65%. 3. There is mildly increased left ventricular wall thickness. 4. The left ventricular diastolic function is normal. 5. E/e' 7 is not elevated. 6. Global longitudinal strain is normal at -18.5%. 7. Left atrial chamber dimension is mildly enlarged. 8. There is mild aortic valve sclerosis. 9. There is trace tricuspid valve regurgitation. 10. No pulmonary hypertension, estimated pulmonary arterial systolic pressure is 30 mmHg. Left Ventricle E/e' 7 is not elevated. Global longitudinal strain is normal at -18.5%. Left ventricular chamber dimension is normal. Left ventricular systolic function is normal, estimated at 60-65%. There is mildly increased left ventricular wall thickness. The left ventricular diastolic function is normal. Right Ventricle Right ventricular chamber dimension is normal. Right ventricular systolic function is normal. Left Atria Left atrial chamber dimension is mildly enlarged. Right Atria Right atrial chamber dimension is normal. Aortic Valve The aortic valve is trileaflet. There is mild aortic valve sclerosis. There is no aortic valve stenosis. There is no aortic valve regurgitation. Pulmonic Valve There is no pulmonic regurgitation. Mitral Valve There is no mitral valve stenosis. There is no mitral valve regurgitation. Tricuspid Valve There is trace tricuspid valve regurgitation. No pulmonary hypertension, estimated pulmonary arterial systolic pressure is 30 mmHg. Pericardium/Pleural There is no pericardial effusion. Inferior Vena Cava Normal inferior vena cava with >50% collapse upon inspiration consistent with normal right atrial pressure, 5 mmHg. Aorta The aortic root size at the sinus of Valsalva is normal. Left Ventricular Outflow Tract Name Value Normal LVOT 2D LVOT Diameter 2.1 cm LVOT Doppler LVOT Peak Gradient 7 mmHg LVOT Mean Gradient 3 mmHg LVOT VTI 23 cm LVOT VTI/AV VTI Ratio 0.7 LVOT Stroke Volume 83 ml LVOT CO 6.2 l/min LVOT CI
[2019-11-24] MEDS: ACETAMINOPHEN 325 MG TABLET 650 MG PO ×2 (05:32→21:45)
[2019-11-24 06:30] LABS: Basophils Absolute Auto 0.1 K/mm3 (0.0-0.1); Basophils Percent Auto 0.6 % (0.2-1.2); Eosinophils Absolute Auto 0.2 K/mm3 (0-0.3); Eosinophils Percent Auto 2.4 % (0-4.4); Hematocrit 28.8 % (42.0-52.0); Hemoglobin 8.9 g/dL (14.0-18.0); Immature Granulocyte Absolute 0.06 K/mm3 (0.00-0.031); Immature Granulocyte Percent A 0.6 % (0-0.5); Lymphocytes Absolute Auto 1.12 K/mm3 (0.9-3.2); Lymphocytes Percent Auto 11.8 % (18.3-44.2); Mean Corpuscular HGB Conc 30.9 g/dl (32-36); Mean Corpuscular Hemoglobin 26.6 pg (26-34); Mean Platelet Volume 9.1 fl (7.4-10.4); Monocytes Absolute Auto 1.5 K/mm3 (0.1-0.6); Monocytes Percent Auto 16.2 % (2.6-8.5); Neutrophils Absolute Auto 6.5 K/mm3 (1.3-6.7); Neutrophils Percent Auto 68.4 % (45.5-73.1); Platelet Count Result 295 k/mm3 (150-375); Red Blood Count 3.35 M/mm3 (4.6-6.20); Red Cell Distribution Width 22.8 % (11.5-14.5); White Blood Count 9.5 K/mm3 (4.5-10.0)
[2019-11-24 06:47] LABS: Alanine Aminotransferase 20 U/L (4-50); Albumin Level 3.5 g/dL (3.5-5.1); Alkaline Phosphatase 106 U/L (38-126); Aspartate Amino Transferase 38 U/L (17-59); Bilirubin,Total 0.3 mg/dL (0.2-1.3); Blood Urea Nitrogen 5 mg/dL (9-20); Calcium 9.6 mg/dL (8.4-10.2); Carbon Dioxide 24 mmol/L (22-30); Chloride 102 mmol/L (98-107); Estimated CRCL calculation 104 ml/min; Estimated Glomerular Filt Rate > 60; Glucose 107 mg/dL (75-110); Magnesium 1.5 mg/dL (1.6-2.3); Potassium 3.7 mmol/L (3.4-5.0); Sodium 134 mmol/L (137-145)
[2019-11-24] MEDS: FERROUS GLUCONATE 324 MG TABLET PO ×3 (08:35→17:52)
[2019-11-24] MEDS: EUCERIN CREAM 120 GM JAR 1 APPLIC TOPICAL (08:36)
[2019-11-24] MEDS: THIAMINE HCL 100 MG TABLET PO (08:36)
[2019-11-24] MEDS: MAGNESIUM SULF 2 GM/WATER 50ML 2 GM/50 ML BAG IVPB (10:02)
[2019-11-24] MEDS: SODIUM CHLORIDE 0.9% IV 1,000 ML 100 ML IV CONT ×2 (10:02→21:40)
[2019-11-24 14:14] LABS: Magnesium 2.1 mg/dL (1.6-2.3)
--- NOTE | 2019-11-24 14:58 | PM.IMPN ---
Progress Note: A&P Assessment and Plan (1) Symptomatic anemia: Code(s): D64.9 - Anemia, unspecified Status: Acute Assessment and Plan: At presentation, HGB 5.6 and HCT 20.4. Patient received a total of 2 units pRBC on 11/16. IFOB positive, likely due to internal hemorrhoids. He was transfused 1 unit PRBC on 11/21/2019 as he was symptomatic evident by tachycardia. Today, Hgb 8.9 and Hct 28.8. Continue to monitor H&H closely. Continue fall precautions Received 3 IV iron infusions. Continue oral iron supplementation. Continue IV Protonix Underwent colonoscopy and EGD on 11/19/2019. EGD was unremarkable. Colonoscopy revealed uncomplicated internal hemorrhoids with stigmata of bleeding. Small-bowel follow-through revealed normal caliber small bowel without mass or stricture and normal transit time. Anemia is unlikely GI related. Protein electrophoresis reveal isolated beta 2 globulin elevation, which may be suggestive of acute inflammation.. Serum immunofixation reveals no monoclonal proteins. He will need to follow-up with Dr. Dominguez in 2 weeks and continue oral iron supplements TID at discharge. Pending results of lab work, he may need to undergo bone marrow biopsy as an outpatient. (2) Tachycardia: Code(s): R00.0 - Tachycardia, unspecified Status: Acute Assessment and Plan: Patient has been monitored with telemetry and has had several episodes of sinus tachycardia with highest in 170s. Episodes seem to correlate with activity or ambulation. Patient is asymptomatic during episodes. I suspect tachycardia is related to hypovolemia given profound anemia. Chest CT performed 11/21 was negative for PE. Review of telemetry continues to reveal episodes of sinus tachycardia up to 140 with single alarm for PVC. Heart rate appears to be stable at rest. Echo has been ordered but not yet taken at this time. Await results of echo Monitor electrolytes Continue to monitor telemetry closely. (3) Orthostatic hypotension: Code(s): I95.1 - Orthostatic hypotension Status: Acute Assessment and Plan: Patient noted to have orthostatic hypotension. He is asymptomatic. Today, blood pressure was 131/79 supine, 120/84 sitting, and dropped to 86/58 upon standing. He has had associated tachycardia. Apply Benito hose Continue IV fluids Await results of echo Check orthostatics every shift (4) Hypomagnesemia: Code(s): E83.42 - Hypomagnesemia Status: Acute Assessment and Plan: Magnesium levels have been low during stay. He was initially started on 200 mg p.o. magnesium oxide BID, however magnesium did not increase adequately. Today magnesium level is low at 1.5. Administered 2 g IV Mag sulfate On repeat, magnesium is 2.1. Continue to monitor magnesium level. (5) Danica-rectal abscess: Code(s): K61.1 - Rectal abscess Status: Acute Assessment and Plan: Patient has history of perianal disease with history of surgical management of perianal abscess in [address] abdomen/pelvis reveals sacral skin thickening extending to anus. On exam, patient has thickened firm skin overlying sacrum to rectum. GI has been consulted and recommendations are appreciated. Patient underwent colonoscopy on 11/18 revealing internal hemorrhoids with stigmata of bleeding. Perianal thickening evaluated by wound care felt to be related to hidradenitis suppurativa. He will need to follow up outpatient with PCP and may benefit from dermatology referral. IV Levaquin discontinued on 11/17. S. cerevisiae IgG and IgA tested to evaluate for possible Crohn's disease, which may explain perianal disease. Levels are low and do not reflect evidence of Crohn's disease. No evidence of Crohn's disease on colonoscopy. (6) Weight loss: Code(s): R63.4 - Abnormal weight loss Status: Chronic Assessment and Plan: Patient endorses recent unintentional we
[2019-11-24] MEDS: MELATONIN 5 MG TABLET PO (21:41)
[2019-11-25] VITALS (13 sets, daily range): BP systolic 91–143; BP diastolic 54–87; PULSE 53–150; RESP 16–20; TEMP 37.1–38.3; O2SAT 98–100
[2019-11-25 06:28] LABS: Basophils Absolute Auto 0.1 K/mm3 (0.0-0.1); Basophils Percent Auto 0.8 % (0.2-1.2); Eosinophils Absolute Auto 0.2 K/mm3 (0-0.3); Eosinophils Percent Auto 2.7 % (0-4.4); Hematocrit 28.8 % (42.0-52.0); Immature Granulocyte Absolute 0.05 K/mm3 (0.00-0.031); Immature Granulocyte Percent A 0.6 % (0-0.5); Lymphocytes Absolute Auto 1.17 K/mm3 (0.9-3.2); Lymphocytes Percent Auto 13.6 % (18.3-44.2); Mean Corpuscular HGB Conc 31.3 g/dl (32-36); Mean Corpuscular Hemoglobin 26.8 pg (26-34); Mean Corpuscular Volume 85.7 fl (80-100); Monocytes Absolute Auto 1.3 K/mm3 (0.1-0.6); Monocytes Percent Auto 14.7 % (2.6-8.5); Neutrophils Absolute Auto 5.8 K/mm3 (1.3-6.7); Neutrophils Percent Auto 67.6 % (45.5-73.1); Platelet Count Result 297 k/mm3 (150-375); Red Blood Count 3.36 M/mm3 (4.6-6.20); Red Cell Distribution Width 22.9 % (11.5-14.5); White Blood Count 8.6 K/mm3 (4.5-10.0)
[2019-11-25 06:34] LABS: Alanine Aminotransferase 22 U/L (4-50); Albumin Level 3.4 g/dL (3.5-5.1); Alkaline Phosphatase 109 U/L (38-126); Aspartate Amino Transferase 33 U/L (17-59); Bilirubin,Total 0.1 mg/dL (0.2-1.3); Blood Urea Nitrogen 5 mg/dL (9-20); Calcium 9.3 mg/dL (8.4-10.2); Carbon Dioxide 22 mmol/L (22-30); Chloride 103 mmol/L (98-107); Estimated CRCL calculation 104 ml/min; Estimated Glomerular Filt Rate > 60; Glucose 106 mg/dL (75-110); Magnesium 1.5 mg/dL (1.6-2.3); Potassium 3.7 mmol/L (3.4-5.0); Sodium 132 mmol/L (137-145)
--- NOTE | 2019-11-25 07:13 | WPDGIPROGNO ---
Progress Note: A&P Additional Plan Patient alert and comfortable this morning. No signs of obvious GI blood loss. Physical exam reveals Vital Signs to be stable. Patient is anicteric. Lungs are clear. Heart without murmur. Abdomen is soft and nontender. Labs reveal normal IBD serology. Impression 1. Anemia. GI workup essentially negative. Occult blood in stool felt to be secondary to hemorrhoids. 2. Danica anal scarring. Likely keloid formation. History of perirectal abscess drainage. No clinical signs of IBD. IBD serology also negative. No indication for Crohn's disease. Etiology for anemia remains unclear. Agree with Hematology evaluation. Subjective Date/time seen: 11/25/19 07:13 Objective Data Vital Signs Vital Signs: Vital Signs - 24 hr 11/24/19 08:00 11/24/19 08:17 11/24/19 10:00 Temperature 36.4 C Pulse Rate 82 79 Respiratory Rate 18 Blood Pressure 131/79 86/58 L 121/76 Pulse Oximetry 100 11/24/19 12:00 11/24/19 15:25 11/24/19 16:00 Temperature 37.1 C Pulse Rate 117 H 91 86 Respiratory Rate 16 Blood Pressure 119/76 Pulse Oximetry 100 11/24/19 18:51 11/24/19 20:00 11/24/19 20:45 Temperature 37.1 C Pulse Rate 90 83 92 Respiratory Rate 16 Blood Pressure 143/81 H 145/89 H Pulse Oximetry 100 11/24/19 20:50 11/24/19 20:55 11/24/19 22:00 Temperature 37.2 C Pulse Rate 116 H 142 H 87 Respiratory Rate 20 Blood Pressure 140/91 H 110/71 141/87 H Pulse Oximetry 100 11/25/19 00:00 11/25/19 02:00 11/25/19 04:00 Temperature 37.1 C Pulse Rate 91 85 103 H Respiratory Rate 20 Blood Pressure 143/81 H Pulse Oximetry 98 Intake/Output Intake/Output: Intake & Output 11/22/19 11/23/19 11/24/19 11/25/19 23:59 23:59 23:59 23:59 Intake Total 2110 3095 3180 400 Output Total 2250 1200 1700 1224 Balance -140 1895 1480 -824 Meds/Results Medications: Active Medications Generic Name Dose Route Start Last Admin Trade Name Freq PRN Reason Stop Dose Admin Acetaminophen 650 mg 11/18/19 10:33 11/24/19 21:45 Tylenol Tablet PO 650 mg Q4H PRN Administration Mild pain 1-3, Fever Ferrous Gluconate 324 mg 11/23/19 12:00 11/24/19 17:52 Ferrous Gluconate PO 324 mg TIDWM TOSIN Administration Pantoprazole Sodium 80 mg/ 500 mls @ 50 mls/hr 11/18/19 02:25 11/24/19 21:40 Dextrose IV CONT 50 mls/hr .Q10H TOSIN Administration Sodium Chloride 1,000 mls @ 100 mls/hr 11/24/19 08:50 11/24/19 21:40 Normal Saline Iv IV CONT 100 mls/hr .Q10H TOSIN Administration Lidocaine HCl 0.3 ml 11/19/19 09:03 Xylocaine 2% Local Inj INTRADERM ONCE PRN to numb area Magnesium Oxide 200 mg 11/18/19 21:00 11/22/19 20:23 Mag-Ox PO 200 mg Q12HR TOSIN Administration Melatonin 5 mg 11/22/19 21:00 11/24/19 21:41 Melatonin PO 5 mg HS TOSIN Administration Menthol/Methyl Salicylate 1 applic 11/19/19 17:23 11/21/19 07:59 Bengay Pain Relieving Cream TOPICAL 1 applic BID PRN Administration Muscle/Joint Pain Multi-Ingred Cream/Lotion/Oil/Oint 1 applic 11/19/19 09:00 11/24/19 08:36 Minerin Creme TOPICAL 1 applic QAM TOSIN Administration Thiamine HCl 100 mg 11/23/19 09:00 11/24/19 08:36 Vitamin B-1 PO 100 mg QAM TOSIN Administration Radiology Results: ITS Impressions Chest X-Ray 11/17/19 15:18 IMPRESSION: No acute cardiopulmonary findings. Abdomen/Pelvis CT 11/17/19 17:45 IMPRESSION: 1. Skin thickening overlying sacrum extending to the anus, possible cellulitis or ulceration. Clinical correlation. Also some inflammation extending to the presacral space but no evidence of sacral osteomyelitis. 2. Rib fractures of varying ages including 2 left lower ribs in mid axillary line which appear relatively acute. 3. Unusual kidney enhancement pattern, could be nephropathy. 4. Borderline sized inguinal lymph nodes, most likely reactive. 5. Cholelithiasis. 6. No ac
[2019-11-25] MEDS: SODIUM CHLORIDE 0.9% IV 1,000 ML 100 ML IV CONT (08:59)
[2019-11-25] MEDS: MAGNESIUM SULF 2 GM/WATER 50ML 2 GM/50 ML BAG IVPB (09:02)
[2019-11-25] MEDS: THIAMINE HCL 100 MG TABLET PO (09:04)
[2019-11-25] MEDS: FERROUS GLUCONATE 324 MG TABLET PO ×3 (09:04→17:52)
[2019-11-25] MEDS: EUCERIN CREAM 120 GM JAR 1 APPLIC TOPICAL (09:06)
[2019-11-25] MEDS: MENTHOL 10% / METHYL SALICYLATE 15% 57 GM TUBE 1 APPLIC TOPICAL (09:07)
--- NOTE | 2019-11-25 11:42 | PM.IMPN ---
Progress Note: A&P Assessment and Plan (1) Symptomatic anemia: Code(s): D64.9 - Anemia, unspecified Status: Acute Assessment and Plan: At presentation, HGB 5.6 and HCT 20.4. Patient received a total of 2 units pRBC on 11/16. IFOB positive, likely due to internal hemorrhoids. He was transfused 1 unit PRBC on 11/21/2019 as he was tachycardic. He received 3 IV iron infusions and is now on PO iron supplementation. He underwent colonoscopy and EGD on 11/19/2019. EGD was unremarkable. Colonoscopy revealed uncomplicated internal hemorrhoids with stigmata of bleeding. Small-bowel follow-through revealed normal caliber small bowel without mass or stricture and normal transit time. Anemia is unlikely GI related and Dr. Ruiz has recommended continued hematology evaluation. He is on protonix which will be switched to PO. Protein electrophoresis reveal isolated beta 2 globulin elevation, which may be suggestive of acute inflammation. Serum immunofixation revealed no monoclonal proteins. Hb is 9.0 and Hct 28.8 today. Continue to monitor H&H closely. Continue fall precautions Received 3 IV iron infusions. Continue oral iron supplementation. Continue PO protonix He will need to follow-up with Dr. Dominguez in 2 weeks and continue oral iron supplements TID at discharge. Pending results of lab work, he may need to undergo bone marrow biopsy as an outpatient. He will need repeat CBC in 3 days. (2) Tachycardia: Code(s): R00.0 - Tachycardia, unspecified Status: Acute Assessment and Plan: Patient has been monitored with telemetry and has had several episodes of sinus tachycardia with highest in 170s which typically correlate with activity or ambulation. He reports that he is asymptomatic during episodes. Tachycardia is likely due to hypovolemia with anemia. Chest CT performed 11/21 was negative for PE. Telemetry was reviewed from 11/24 with sinus rhythm and intermittent episodes of sinus tachycardia with rates up to 140. His heart rate appears stable at rest. Echo was performed 11/23 and reveals normal LV systolic function with EF estimated at 60-65%, mildly increased LV wall thickness, normal diastolic function, and mild left atrial enlargement. TSH was WNL. He is afebrile without leukocytosis. Monitor electrolytes Continue to monitor telemetry closely Plan to consult cardiology for further recommendations which are greatly appreciated. Will plan to check random cortisol. (3) Orthostatic hypotension: Code(s): I95.1 - Orthostatic hypotension Status: Acute Assessment and Plan: Patient noted to have orthostatic hypotension. He is asymptomatic. Orthostatic BP today was 131/86 supine, 124/80 sitting, and 91/59 standing. He developed tachycardia with standing as well with rate up to 145. JAILENE hose are in place and he is on IV fluids due to possible hypovolemia contributing. Echo was performed as above without significant abnormality. Continue JAILENE hose Continue IV fluids (4) Hypomagnesemia: Code(s): E83.42 - Hypomagnesemia Status: Acute Assessment and Plan: Magnesium levels have been low during stay. He was on PO supplementation which was insufficient so he received IV mag sulfate. Magnesium today is 1.5. Administer 2 g IV Mag sulfate Continue to monitor (5) Danica-rectal abscess: Code(s): K61.1 - Rectal abscess Status: Acute Assessment and Plan: The patient has history of perianal disease with history of surgical management of perianal abscess in [address] abdomen/pelvis revealed sacral skin thickening extending to anus. He underwent colonoscopy on 11/18 revealing internal hemorrhoids with stigmata of bleeding. S. cerevisiae IgG and IgA were ordered to evaluate for possible Crohn's disease due to his perianal disease and were low indicating low probability for Chron's disease. There was no evidence of Crohn's disease on colonoscopy.
--- NOTE | 2019-11-25 11:56 | PM.CNCAR ---
Assessment and Plan Assessment and plan (1) Sinus tachycardia: Code(s): R00.0 - Tachycardia, unspecified Status: Acute Assessment and Plan: 49-year-old male with history of hypertension, heavy alcohol abuse, and tobacco abuse, admitted to the hospital with generalized weakness shortness of breath. He was found to be severely anemic, has received packed red blood cells, IV iron. Patient is found to be in sinus tachycardia on telemetry, and also has orthostatic hypotension. Patient's sinus tachycardia appears to be secondary to severe anemia, physical deconditioning/malnutrition, alcohol abuse with possible mild withdrawal. At this time, supportive care is recommended. His echocardiogram shows normal LV systolic function without any significant structural heart disease. TSH is within normal limits. Recommend nutritional support, supplement magnesium. Fall precautions. Correction of anemia, and further workup as necessary to find the etiology of anemia. Adequate hydration. Compression stockings. No additional cardiac workup is necessary at this time. Outpatient follow-up in 3-4 weeks or sooner if needed. Need for any ambulatory security monitor will be based on patient's clinical course. (2) Orthostatic hypotension: Code(s): I95.1 - Orthostatic hypotension Status: Acute Assessment and Plan: See the plan above (3) Anemia: Qualifiers: Anemia type: unspecified type Qualified Code(s): D64.9 - Anemia, unspecified Code(s): D64.9 - Anemia, unspecified Status: Acute Assessment and Plan: Management as per primary team, hematology and gastroenterology (4) Alcohol abuse: Code(s): F10.10 - Alcohol abuse, uncomplicated Status: Acute Assessment and Plan: Patient was counseled to either cut down or stop drinking. He was also advised to stop smoking. History of Present Illness History of Present Illness Consult date/time: 11/25/19 11:56 Date of consult 11/25/2019 Reason for consult: Tachycardia Requesting physician: HPI: 49-year-old male with no known prior cardiac history was admitted to [facility] on 11/17/2019 with complaints of generalized weakness, shortness of breath. He denied any chest pain. Patient was found to be severely anemic with hemoglobin of 5.6. He was found to have positive FOBT in the ER with some lesions in the perianal area. Patient has been evaluated by Gastroenterology, had EGD done which was unremarkable. Colonoscopy was reported show internal hemorrhoids, in further evaluation for perianal skin area was recommended. He was also evaluated by Hematology. Patient has received packed red blood cells, and IV iron. His COVID-19 PCR has been reported to be negative. Patient was found to have sinus tachycardia during hospitalization, and therefore Cardiology has been consulted. There is no known prior cardiac history. He denies chest pain. He has occasional dizziness without syncope. Has generalized fatigue and dyspnea on exertion. Patient drinks alcohol heavy, 8-10 beers per day. He also is a smoker. Denies any illicit drugs. On telemetry, patient has been in sinus tachycardia with occasional PVCs. His echocardiogram which I personally evaluated shows normal LV systolic function without any major structural heart disease. His TSH is within normal limits. Magnesium is low, and is being supplemented. Reason For Visit: Anemia, GI Bleed Review of Systems Constitutional: Constitutional: Denies chills, Reports fatigue, Denies fever(s) and Denies headache(s) Eyes: Eyes: Reports as per HPI, Denies change in vision, Denies loss of vision and Denies eye pain ENT: Reports as per HPI, Reports Normal hearing present, Denies headache(s), Denies lip swelling, Denies epistaxis and Denies sore throat Cardiovascular: Cardiovascular: Reports as per HPI, Denies chest pain, Denies syncope, Denies irregular heart rhythm, Denies
[2019-11-25] MEDS: PANTOPRAZOLE 40 MG TABLET PO (12:40)
[2019-11-25] MEDS: MELATONIN 5 MG TABLET PO (21:27)
[2019-11-25] MEDS: ACETAMINOPHEN 325 MG TABLET 650 MG PO (21:27)
[2019-11-26] VITALS (15 sets, daily range): BP systolic 76–149; BP diastolic 54–89; PULSE 71–169; RESP 18–20; TEMP 36.7–37.8; O2SAT 100
[2019-11-26] MEDS: SODIUM CHLORIDE 0.9% IV 1,000 ML 100 ML IV CONT ×2 (00:38→12:26)
[2019-11-26 06:30] LABS: Mean Corpuscular Hemoglobin 27.2 pg (26-34); Mean Corpuscular Volume 87.6 fl (80-100); Mean Platelet Volume 9.7 fl (7.4-10.4); Platelet Count Result 293 k/mm3 (150-375); Red Blood Count 3.31 M/mm3 (4.6-6.20)
[2019-11-26 06:43] LABS: Alanine Aminotransferase 24 U/L (4-50); Albumin Level 3.4 g/dL (3.5-5.1); Alkaline Phosphatase 113 U/L (38-126); Aspartate Amino Transferase 35 U/L (17-59); Bilirubin,Total 0.2 mg/dL (0.2-1.3); Blood Urea Nitrogen 6 mg/dL (9-20); Calcium 9.6 mg/dL (8.4-10.2); Carbon Dioxide 23 mmol/L (22-30); Chloride 103 mmol/L (98-107); Estimated CRCL calculation 104 ml/min; Estimated Glomerular Filt Rate > 60; Glucose 104 mg/dL (75-110); Magnesium 1.5 mg/dL (1.6-2.3); Potassium 3.7 mmol/L (3.4-5.0); Sodium 132 mmol/L (137-145)
[2019-11-26] MEDS: MAGNESIUM SULF 2 GM/WATER 50ML 2 GM/50 ML BAG IVPB (08:10)
[2019-11-26] MEDS: THIAMINE HCL 100 MG TABLET PO (08:11)
[2019-11-26] MEDS: PANTOPRAZOLE 40 MG TABLET PO (08:11)
[2019-11-26] MEDS: FERROUS GLUCONATE 324 MG TABLET PO ×3 (08:11→18:07)
[2019-11-26] MEDS: EUCERIN CREAM 120 GM JAR 1 APPLIC TOPICAL (08:12)
--- NOTE | 2019-11-26 09:45 | PM.CNGS ---
Assessment and Plan Assessment and plan (1) Lesion of perianal area: Code(s): K62.9 - Disease of anus and rectum, unspecified Status: Acute Assessment and Plan: Imaging reviewed and discussed with the patient in detail. Pelvic MRI suggests multiple small perirectal fliud collections with presacral edema, bilateral inguinal lymphadenopathy, and soft tissue density in the perineum and to the right of midline. After examining the patient and discussing the case with Dr. Gamboa, he has what appears to be an extremely chronic skin condition around bilateral buttocks and extending to the sacrum that is grossly abnormal. He appears to have some very small superficial abscesses that we believe will drain on their own, and likely have done so for years. There is no evidence of a perirectal abscess on exam and the superficial abscesses would not be the cause for his fever or tachycardia. With that being said, the patient does need further work-up of the chronic perianal and sacral skin abnormality that would be best evaluated by a Licensed Funeral Director And Embalmer or Colorectal Surgeon. Thank you for allowing me to see the patient in consultation. (2) Anemia: Qualifiers: Anemia type: unspecified type Qualified Code(s): D64.9 - Anemia, unspecified Code(s): D64.9 - Anemia, unspecified Status: Acute (3) Weight loss: Code(s): R63.4 - Abnormal weight loss Status: Chronic (4) Cholelithiasis: Code(s): K80.20 - Calculus of gallbladder without cholecystitis without obstruction Status: Acute Assessment and Plan: Incidental finding. No evidence of cholecystitis on imaging. Patient is completely asymptomatic. Discussed what signs and symptoms to look for with gallbladder disease in the future and to follow up with PCP if any begin to arise. (5) Tachycardia: Code(s): R00.0 - Tachycardia, unspecified Status: Acute Assessment and Plan: Cardiology following. Tachycardia overnight with the associated low grade fever. As mentioned above, we do not believe the skin condition is causing his fever or tachycardia. (6) Alcohol abuse: Code(s): F10.10 - Alcohol abuse, uncomplicated Status: Acute Assessment and Plan: Encouraged cessation. History of Present Illness Consult details Consult date: 11/26/19 Reason for consult: wound care (Perirectal abscesses) Requesting physician: Leatha Tatum PA-C Narrative: This is a 49-year-old male who initially presented to the emergency department on 11/17/2019 with complaints of generalized weakness, dizziness, and shortness of breath. He was found to have severe anemia with a hemoglobin of 5.6 and was admitted to the hospitalist service. The patient was transfused and hemoglobin is now stable at 9.0. CT scan of abdomen and pelvis in the ER showed skin thickening over his sacrum with fat stranding and inflammation of the presacral space, multiple rib fractures with to that appear acute on the left side, and cholelithiasis. Gastroenterology was consulted and performed an upper endoscopy and colonoscopy on 11/19/2019 with only findings of internal hemorrhoids. IBD serology was ordered and negative. Small-bowel series was unremarkable. Hematology was also consulted. Patient started on iron infusions and recommended to have outpatient workup for his severe anemia. The patient also was found to have episodes of sinus tachycardia that was thought to be related to his anemia, deconditioning and malnutrition, and alcohol abuse with mild withdrawal. Last night, the patient developed a low-grade fever of 100.4? F with associated tachycardia. Abdominal and pelvis MRI obtained and showed cholelithiasis with no other abnormalities of the gallbladder, and multiple small perirectal abscesses with 1 on the right of midline measuring 2.2 x 0.7 cm, a midline abscess measuring 1.3 x 1.0 cm, and a left of midline abscess measuring 1.2 x 1.1 cm, with m
--- NOTE | 2019-11-26 09:58 | PCNFU ---
Nutrition Follow-Up Complete: Underweight R/T inadequate oral intake for energy needs as evidence by BMI of 17.5 Goal: PO intake of meals and supplements at 75% or greater to promote wt gain Patient currently meeting nutritional goal. No new goal at this time. Pt current nutrition is NPO. Nutrition recommendation: Advance as tolerated per MD orders. Last recorded weight is 67 kg. Bowel Motility:+BM 11/23 reported. Labs Reviewed:Na 132,BUN 6 Meds Noted:NS 1000 ml @ 100 ml/hr, Protonix Additional Notes: Spoke with nursing today over telephone due to COVID 19 precautions. Patient has surgery consult today for latasha-rectal abscess. Plans for NPO at this time. Patient had been on a regular diet, eating 90-100% of meals. Monitoring; wt, po intake, diet, labs every 5 days
--- NOTE | 2019-11-26 13:16 | PM.PNGS ---
Progress Note: A&P Assessment and Plan (1) Lesion of perianal area: Code(s): K62.9 - Disease of anus and rectum, unspecified Status: Chronic Assessment and Plan: As mentioned above, he has a chronic skin condition of the sacral area including both buttocks and the perianal skin. This appears to be a chronically infected area which has bothered him surprisingly little. I do not see any significant abscess despite the positive MRI. I do not feel that abscesses in this area are causing his fever as he has no tenderness, no redness no swelling and I can't detect any persistent purulence from any area to drain. I talked with Amy Martin PA-C, the hospitalist caring for Mr. Davis. I do not see anything acutely to be done with this and since it is bothering the patient very little, I doubt that he will want to follow up for treatment. It has the appearance of hidradenitis although it is not similar to any hidradenitis I have ever seen, which would be treated by excision. This is such an extensive area that such an excision would require diverting colostomy, extensive skin excision and then skin coverage. This would likely involve plastic surgery. This is not something we can provide for him here. I would recommend follow-up with a colorectal surgeon to evaluate and see if further treatment could be rendered. However, I do not think the patient is going to be interested in that as it does not really bother him. He has lived with it for a very long time with little problem. There is some chance that the chronic nature of this could cause malignant change although it does not appear to be a malignancy. Thank you for asking us to see the patient in consultation but I do not really have anything to offer at this time. Subjective Subjective Date/Time Seen: 11/26/19 13:16 patient is a 49-year-old man who presented to the emergency room on November 16 with generalized weakness dizziness and was found to be profoundly anemic. His hemoglobin was 5.6. He has received 3 units packed cells and a thorough workup including upper and lower endoscopy. No GI source for bleeding has been found. He was noted to have a chronic skin condition of the sacrum and buttocks bilaterally. He reports he has had abscesses drained here in 1999 4 and again in 2011. He admits that this drains off and on but he has not had any serious drainage in several years. He currently has no pain or discomfort associated with his perianal area buttocks or sacrum. He was noted to have a low-grade fever to 100.4?. He has a normal white count. He had an abdominal and pelvic MRI done yesterday. This showed 3 small abscesses. Two of them more 1 cm in size another was 2 cm. We are asked to see the patient in consultation regarding these skin abscesses. Review of Systems Review of Systems: All systems reviewed & are unremarkable except as noted in HPI and below ( HPI) Exam GI: Rectal Exam: other ( chronic scarring and infection sacral area, both buttocks and perianal.) Other: I examined the perianal area thoroughly by palpation. I cannot identify any site of abscess either by palpation or by purulent drainage that is persistent. The scarring and chronic infection associated with this skin condition of his sacral area and buttocks is something I have never seen. It is suggestive of severe hidradenitis but does not appear to be that either. It does not appear to be a flowering- pot perineum which can be associated with inflammatory bowel disease. Objective Data Vital Signs Vital Signs: Vital Signs - 24 hr 11/25/19 16:00 11/25/19 20:00 11/25/19 21:27 Temperature 38.3 C H Pulse Rate 101 H 103 H Pulse Rate [Monitor] Respiratory Rate Blood Pressure Pulse Oximetry 11/25/19 22:00 11/25/19 22:27 11/26/19 00:00 Temperature 38.3 C H 37.1 C Pulse Rate 150 H 98 Pulse Rate [Monitor] Respiratory Rate 20 Blood Pressure 92/75 L P
[2019-11-26 17:25] LABS: Add Urine Microscopic? NO; Appearance Urine Clear (Clear); Bilirubin Urine Negative (Negative); Blood Urine Negative (Negative); Color Urine Yellow (Yellow); Glucose Urine UA Negative (Negative); Ketones Urine Negative (Negative); Leukocyte Esterase Ur Negative LEU/UL (NEGATIVE); Nitrate Urine Negative (Negative); Protein Urine Negative (Negative); Specific Grav Ur 1.013 (1.001-1.035); Urobilinogen Urine Negative mg/dL (<2.0)
--- NOTE | 2019-11-26 17:32 | PM.DS ---
DS: Admitting Diagnosis Admitting Diagnosis Admitting Diagnosis: Anemia, unspecified DS: Discharge Diagnosis Discharge Diagnosis (1) Symptomatic anemia: Code(s): D64.9 - Anemia, unspecified Status: Acute (2) Tachycardia: Code(s): R00.0 - Tachycardia, unspecified Status: Acute (3) Orthostatic hypotension: Code(s): I95.1 - Orthostatic hypotension Status: Acute (4) Hypomagnesemia: Code(s): E83.42 - Hypomagnesemia Status: Acute (5) Danica-rectal abscess: Code(s): K61.1 - Rectal abscess Status: Acute (6) Weight loss: Code(s): R63.4 - Abnormal weight loss Status: Chronic Assessment and Plan: Patient endorses recent unintentional weight loss, poor appetite, and night sweats, which raises concern for malignancy. He believes he has lost 15 lbs in approximately [address] chest abdomen pelvis with no obvious findings suggest a malignancy. There is borderline size inguinal lymph nodes noted on CT, however probably reactive. GI workup did not reveal malignancy. HIV is negative. TSH is within normal limits. His appetite has been good. Hematology/oncology has been consulted and recommendations are greatly appreciated PEP reveals isolated elevation of beta-2 globulin. He will need to follow-up with Dr. Dominguez as an outpatient CT abd/pelvis revealed unusual kidney enhancement so I will order MRI abd/pelvis for further evaluation (7) Musculoskeletal pain: Code(s): M79.18 - Myalgia, other site Status: Acute Assessment and Plan: Patient complains of left sided chest wall pain secondary to recent fall and rib fractures, visualized on CT a/p at presentation. Additionally, complains of right knee pain secondary to fall. Knee x-ray reveals no osseous abnormalities. Continue acetaminophen prn pain Continue heat therapy Clive wrap for knee Continue additional symptomatic treatment as needed. (8) COVID-19 ruled out: Code(s): Z03.818 - Encounter for observation for suspected exposure to other biological agents ruled out Status: Acute Assessment and Plan: Informed of negative result on 11/18/2019. CXR revealed no acute cardiopulmonary findings. Patient endorses occasional cough. Febrile at 100.1 on 11/17 but has been afebrile since. Patient is maintaining adequate oxygenation on room air. (9) Alcohol abuse: Code(s): F10.10 - Alcohol abuse, uncomplicated Status: Acute Assessment and Plan: The patient has a hx of alcohol dependence. His sinus tachycardia may be due to possible mild withdrawal. Continue to encourage cessation of alcohol use [facility] protocol DS: Summary Hospital Course Reason for hospitalization: Generalized weakness Hospital Course: Mr. Davis is a 49 y.o. male with PMH significant for hypertension not on any medications prior to admission who presented to the ED 11/17/2019 with c/o generalized weakness, shortness of breath, non-productive cough, dizziness, and left costal discomfort after a fall on his right side. He reported night sweats and recent weight loss. He denied subjective fever and chills. Initial workup in the ED revealed WBC 6,500, Hb 5.6, Hct 20.4, sodium 139, potassium 3.2, Cl 111, CO2 17, Cr 0.9, BUN 4, CXR with old right mid rib fractures and no acute findings, CT abd/pelvis with skin thickening over the sacral region, rib fractures with 2 left lower ribs appearing relatively acute, unusual kidney enhancement, and borderline inguinal lymph nodes. He was transfused 2 units pRBC 11/17/2019. GI was consulted and the patient was admitted to the hospitalist service for further evaluation and treatment. Hematology/oncology was also consulted due to significant anemia, weight loss, and night sweats. He underwent colonoscopy and EGD by Dr. Ruiz. EGD was unremarkable. Colonoscopy revealed uncomplicated internal hemorrhoids with stigmata of bleeding. Small-bowel follow-thr
--- NOTE | 2019-12-04 08:36 | PC.NURSE ---
Blood cx are negative.
== END 2019-11-26 19:10 | disposition home or self-care (01) | DRG 812 ==
LOC: ANHED 18:55 → ANH3MEDSUR 19:32
PROVIDERS: Family Medicine; Internal Medicine Gastroenterology; Internal Medicine Hematology & Oncology; Physician Assistant; Admitting Provider Hospitalist; Emergency Provider Emergency Medicine; Visit Provider Physician Assistant
PROC: 0DJ08ZZ Inspection of Upper Intestinal Tract, Via Natural or Artificial Opening Endoscopic (ICD-10-PCS; CPT 43235; principal; 2019-11-19 10:30)
DX: D50.9 Iron deficiency anemia, unspecified (principal); E87.2 Acidosis; K61.1 Rectal abscess; Z03.818 Encounter for observation for suspected exposure to other biological agents ruled out; K80.20 Calculus of gallbladder without cholecystitis without obstruction; K64.8 Other hemorrhoids; I95.1 Orthostatic hypotension; E83.42 Hypomagnesemia; F10.10 Alcohol abuse, uncomplicated; R00.0 Tachycardia, unspecified; L98.9 Disorder of the skin and subcutaneous tissue, unspecified; F17.200 Nicotine dependence, unspecified, uncomplicated
CPT/HCPCS: 36415; 36430; 71045; 71275; 72197; 73560; 74177; 74183; 74250; 80048; 80053; 81001; 81003; 82533; 82607; 82728; 82746; 83010; 83540; 83550; 83605; 83615; 83735; 84155; 84165; 84238; 84443; 85014; 85018; 85025; 85027; 85046; 86021; 86334; 86671; 86703; 86850; 86880; 86900; 86901; 86923; 87040; 87635; 87804; 93005; 93306; 96365; 96366; 96367; 97161; 99285; A9270; A9577; C9113; G0378; G0432; J0131; J1756; J1956; J2704; J3475; J3480; J7030; J7040; J7050; J7060; J7120; P9016; Q9967; U0003

== ENCOUNTER 2019-12-03 16:40 | Outpatient (CLI) | payer OTHER, SELFPAY ==
[2019-12-03 17:17] LABS: Hematocrit 34.7 % (42.0-52.0); Hemoglobin 10.8 g/dL (14.0-18.0); Mean Corpuscular HGB Conc 31.1 g/dl (32-36); Mean Corpuscular Volume 89.9 fl (80-100); Mean Platelet Volume 9.2 fl (7.4-10.4); Platelet Count Result 258 k/mm3 (150-375); Red Blood Count 3.86 M/mm3 (4.6-6.20); Red Cell Distribution Width 23.3 % (11.5-14.5); White Blood Count 11.1 K/mm3 (4.5-10.0)
[2019-12-03 17:29] LABS: Magnesium 1.6 mg/dL (1.6-2.3)
== END 2019-12-03 16:41 | disposition home or self-care (01) ==
PROVIDERS: PCP Physician Assistant; Visit Provider Physician Assistant
DX: D64.9 Anemia, unspecified (principal); E83.42 Hypomagnesemia
CPT/HCPCS: 36415; 83735; 85027

== ENCOUNTER 2020-01-16 17:04 | Outpatient (CLI) | payer OTHER, SELFPAY ==
--- NOTE | ~2020-01-16 | XR_ITS ---
XR shoulder RT min 2V 01/16/2020 17:49 INDICATION: Right shoulder pain PROCEDURE: 4 views right shoulder COMPARISON: No prior studies for comparison. FINDINGS: Fracture, dislocation or subluxation is not identified. 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 There is a healed right eighth and ninth rib fracture. The soft tissues appear w ithin normal limits. No foreign bodies are identified. IMPRESSION: 1: NO ACUTE BONE OR JOINT ABNORMALITY IDENTIFIED. Reviewed, dictated and finalized at location A.
[2020-01-16 17:33] LABS: Hematocrit 39.7 % (42.0-52.0); Hemoglobin 12.8 g/dL (14.0-18.0); Mean Corpuscular HGB Conc 32.2 g/dl (32-36); Mean Corpuscular Hemoglobin 32.3 pg (26-34); Mean Corpuscular Volume 100.3 fl (80-100); Mean Platelet Volume 9.2 fl (7.4-10.4); Platelet Count Result 283 k/mm3 (150-375); Red Blood Count 3.96 M/mm3 (4.6-6.20); Red Cell Distribution Width 19.5 % (11.5-14.5); White Blood Count 11.3 K/mm3 (4.5-10.0)
[2020-01-16 17:41] LABS: Creatine Kinase 45 U/L (55-170)
[2020-01-16 18:34] LABS: Erythrocyte Sedimentation Rate 92 mm/hr (0-20)
== END 2020-01-16 17:05 | disposition home or self-care (01) ==
PROVIDERS: PCP Family Medicine; Visit Provider Physician Assistant
DX: M79.10 Myalgia, unspecified site (principal); D64.9 Anemia, unspecified; M25.519 Pain in unspecified shoulder
CPT/HCPCS: 36415; 73030; 82550; 85027; 85652